=== PATIENT | male | born 1950 | race Caucasian/White ===

== ENCOUNTER 2018-04-01 08:44 | Observation (INO) | payer BC ==
--- NOTE | 2018-04-01 08:52 | EDM.PDOC ---
ED HPI GENERAL MEDICAL PROBLEM - General Stated Complaint: DIZZY Time Seen by Provider: 04/01/18 08:45 - History of Present Illness INITIAL COMMENTS - FREE TEXT/NARRATIVE: HISTORY AND PHYSICAL: History of present illness: The patient is a 67-year-old male who follows with Dr. Velasco in the clinic and has a history of COPD coronary artery disease with CABG twice the last one was 4 yrs ago, hypercholesterolemia hypertension and was recently diagnosed with a pulmonary embolism on the left and was placed on Xarelto, it was even believe that there might be some component of lung infarct on the left, and who was seen in the clinic yesterday for reevaluation regarding the PE. The patient was evaluated by the provider and he did mention that he was feeling somewhat dizzy. On exam during that clinic visit the patient had good breath sounds and felt that the pain on the left side of his chest had been improving. He did have blood work yesterday which revealed a hemoglobin of 12.6, which is down from his usual range of 15 per his provider, and he also had a basic metabolic profile all of which has been reviewed by me. At the conclusion of that clinic visit he was scheduled to have a repeat CT of the chest on April 28 he had his COPD meds renewed and he was scheduled to have repeat labs in the next week or so. He was also noted on the clinic visit yesterday that he was slightly orthostatic and he was advised to drink electrolyte solutions and fluids. Patient's son called Dr. Velasco this morning and said that he continued to be dizzy. Dr. Velasco referred the patient to the ED and he is currently in the ED for evaluation. The patient in the ED currently tells me that he feels more lightheaded/dizzy than he did yesterday. He says it is worse with position changes and he feels off-balance when he is walking. He feels like he gets foggy in his thoughts but is not confused and has no speech or swallowing changes. He doesn't have any focal weakness that he can identify but he says that he intermittently will feel like his upper extremities feel drained. He has no headache neck pain or back pain no chest pain no shortness of breath more than usual and no abdominal complaints. He had a bowel movement yesterday that was not black or bloody and he has no vomiting. He says he is eating and drinking normally although not much of an appetite. He uses an inhaler at home for his COPD but has been smoking again. He's had normal urine output and no blood in his urine. He has no extremity complaints of pain. Patient says he is not dizzy per se as a spinning-like sensation but more as a feeling like he might pass out. Please note that the patient has seen Dr. Verma in the past for his coronary artery disease. Review of systems: As per history of present illness and below otherwise all systems reviewed and negative. Past medical history: As per history of present illness and as reviewed below otherwise noncontributory. Surgical history: As per history of present illness and as reviewed below otherwise noncontributory. Social history: No reported history of drug or alcohol abuse. Family history: As per history of present illness and as reviewed below otherwise noncontributory. Physical exam: General: Well-developed well-nourished man who is thin nontoxic and speaks clearly and easily in the ED. Patient's initial room air O2 sat was 88%. He is cooperative and interactive HEENT: Atraumatic, normocephalic, pupils reactive, negative for conjunctival pallor or scleral icterus, mucous membranes moist, throat clear, neck supple, nontender, trachea midline. TMs are dulled bilaterally difficult to see the left lung due to some cerumen in the canal. There is no mastoid tenderness no cervical adenopathy or nuchal rigidity. Lungs: patient has coarse breath sounds bilaterally which are diminished at the bases bilaterally and there is expiratory wheezing more at the left base and scattered throughout the right side , breath sounds equal bilaterally, chest nontender. Heart: S1S2, regular rate and rhythm no overt murmurs Abdomen: Soft, nondistended, nontender. Negative for masses or hepatosplenomegaly. Negative for costovertebral tenderness. there is no rebound guarding or tympany. Bowel sounds are normoactive Pelvis: Stable nontender. Genitourinary: Deferred. Rectal: Deferred. Extremities: Atraumatic, negative for cords or calf pain. Neurovascular unremarkable. no pedal edema or leg asymmetry Neuro: Awake, alert, oriented. Cranial nerves II through XII unremarkable. Cerebellum unremarkable. Motor and sensory unremarkable throughout. Exam nonfocal. dorsi and plantar flexion is intact 5/5 inclusive of the great toe and tone is normal throughout. 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 Skin: There is no diaphoresis and no overt rashes or lesions. There is a nick color to his face and nose appears chronic Diagnostics: EKG orthostatic vitals CBC CMP INR troponin TSH UA CT scan of the head chest x- ray Therapeutics: IV O2 monitor duo neb Solu-Medrol Patient's orthostatic vitals were not positive. The patient stated to nursing that once he was placed on oxygen therapy on arrival he felt less dizzy. After I receive the positive troponin level of 0.184 I contacted the patient's electronic instrument trades worker, Dr. Valentin, at [facility] at 10:20 AM. As the patient is not having chest pain and has no EKG changes he does not feel that the patient merits transfer and that we can monitor him here and if the troponin continues to rise or the patient develops symptoms he would be willing to care for him. 1030: I discussed this case with Dr. Jansen who accepts the patient for admission. I discussed all testing results with Dr. Velasco as well as the patient and family at bedside. He is agreeable for admission. He understands that the troponin is elevated and that he may need to be transferred if this progresses. He is also aware of all testing results. Impression: Dizziness, COPD exacerbation with hypoxia, elevated troponin, recent PE Definitive disposition and diagnosis as appropriate pending reevaluation and review of above. - Related Data Allergies Allergy/AdvReac Type Severity Reaction Status Date / Time No Known Allergies Allergy Verified 04/01/18 09:11 Home Meds: Home Meds Albuterol Sulfate [Proair Hfa] 1 - 2 puff INH Q4HR PRN 04/01/18 [History] Aspirin [Lo-Dose Aspirin EC] 81 mg PO DAILY 04/01/18 [History] Carvedilol 6.25 mg PO BID 04/01/18 [History] Diclofenac Sodium [Voltaren] 04/01/18 [History] Isosorbide Mononitrate [Imdur] 30 mg PO DAILY 04/01/18 [History] Losartan Potassium 50 mg PO DAILY 04/01/18 [History] Rivaroxaban [Xarelto] 15 mg PO ASDIRECTED 04/01/18 [History] Umeclidinium Brm/Vilanterol Tr [Anoro Ellipta 62.5-25 MCG] 1 puff INH DAILY [History] atorvaSTATin Calcium [Atorvastatin Calcium] 40 mg PO DAILY 04/01/18 [History] ED ROS GENERAL - Review of Systems Review Of Systems: ROS reveals no pertinent complaints other than HPI. ED EXAM, GENERAL - Physical Exam Exam: See Below (see dictation) Course - Vital Signs Last Recorded V/S: Last Vital Signs Temp 36.4 C 04/01/18 08:48 Pulse 70 04/01/18 09:45 Resp 18 04/01/18 09:45 BP 80/59 L 04/01/18 09:45 Pulse Ox 96 04/01/18 09:45 Orthostatic Blood Pressure [ 91/66 Standing] Orthostatic Blood Pressure [ 107/65 Sitting] Orthostatic Blood Pressure [ 107/69 Supine] - Orders/Labs/Meds Orders: Active Orders 24 hr Category Date Time Status Patient Status [ADT] Stat ADT 04/01/18 10:40 Ordered Cardiac Monitoring [RC] . DIRECTED Care 04/01/18 08:53 Active EKG Documentation Completion [RC] STAT Care 04/01/18 08:53 Active Orthostatic Vital Signs [RC] ASDIRECTED Care 04/01/18 08:53 Active Oxygen Therapy, ED [RC] ASDIRECTED Care 04/01/18 08:53 Active Pulse Oximetry [RC] ASDIRECTED Care 04/01/18 08:53 Active RT Aerosol Therapy [RC] ASDIRECTED Care 04/01/18 08:58 Active RT Aerosol Therapy [RC] ASDIRECTED Care 04/01/18 09:03 Active UA W/MICROSCOPIC [URIN] Stat Lab 04/01/18 09:02 Ordered Sodium Chloride 0.9% [Normal Saline] 1,000 ml Med 04/01/18 09:15 Active IV ASDIRECTED Sodium Chloride 0.9% [Saline Flush] Med 04/01/18 08:53 Active 10 ml FLUSH ASDIRECTED PRN Sodium Chloride 0.9% [Saline Flush] Med 04/01/18 08:53 Active 2.5 ml FLUSH ASDIRECTED PRN Saline Lock Insert [OM.PC] Stat Oth 04/01/18 08:53 Ordered Medication Orders Sodium Chloride (Normal Saline) 1,000 mls @ 83 mls/hr IV ASDIRECTED NEHEMIAH Last Admin: 04/01/18 09:54 Dose: 83 mls/hr Sodium Chloride (Saline Flush) 10 ml FLUSH ASDIRECTED PRN PRN Reason: Keep Vein Open Sodium Chloride (Saline Flush) 2.5 ml FLUSH ASDIRECTED PRN PRN Reason: Keep Vein Open Labs: Laboratory Tests 04/01/18 04/01/18 04/01/18 Range/Units 08:50 08:50 08:50 WBC 8.70 (4.0-11.0) K/uL RBC 3.96 L (4.50-5.90) M/uL Hgb 12.8 L (13.0-17.0) g/dL Hct 37.7 L (38.0-50.0) % MCV 95.2 (80.0-98.0) fL MCH 32.3 H (27.0-32.0) pg MCHC 34.0 (31.0-37.0) g/dL RDW Std Deviation 47.8 (28.0-62.0) fl RDW Coeff of Saman 14 (11.0-15.0) % Plt Count 175 (150-400) K/uL MPV 11.30 (7.40-12.00) fL Neut % (Auto) 72.4 (48.0-80.0) % Lymph % (Auto) 16.6 (16.0-40.0) % Frederick % (Auto) 9.5 (0.0-15.0) % Eos % (Auto) 1.3 (0.0-7.0) % Baso % (Auto) 0.2 (0.0-1.5) % Neut # (Auto) 6.3 H (1.4-5.7) K/uL Lymph # (Auto) 1.4 (0.6-2.4) K/uL Frederick # (Auto) 0.8 (0.0-0.8) K/uL Eos # (Auto) 0.1 (0.0-0.7) K/uL Baso # (Auto) 0.0 (0.0-0.1) K/uL Nucleated RBC % 0.0 /100WBC Nucleated RBCs # 0 K/uL INR 1.25 Sodium 137 (136-148) mmol/L Potassium 4.2 (3.5-5.1) mmol/L Chloride 100 (98-107) mmol/L Carbon Dioxide 28.6 (21.0-32.0) mmol/L BUN 17 (7.0-18.0) mg/dL Creatinine 1.3 (0.8-1.3) mg/dL Est Cr Clr Drug Dosing 56.65 mL/min Estimated GFR (MDRD) 55.4 ml/min Glucose 122 H (74-106) mg/dL Calcium 9.1 (8.5-10.1) mg/dL Total Bilirubin 1.0 (0.2-1.0) mg/dL AST 32 (15-37) IU/L ALT 37 (14-63) IU/L Alkaline Phosphatase 121 H (46-116) U/L Troponin I 0.184 H* (0.000-0.056) ng/mL Total Protein 7.7 (6.4-8.2) g/dL Albumin 3.6 (3.4-5.0) g/dL Globulin 4.1 H (2.0-3.5) g/dL Albumin/Globulin Ratio 0.9 L (1.3-2.8) TSH 3rd Generation 0.64 (0.36-3.74) uIU/mL Meds: Medications Generic Name Dose Route Start Last Admin Trade Name Freq PRN Reason Stop Dose Admin Sodium Chloride 1,000 mls @ 83 mls/hr 04/01/18 09:15 04/01/18 09:54 Normal Saline IV 83 mls/hr ASDIRECTED NEHEMIAH Administration Sodium Chloride 10 ml 04/01/18 08:53 Saline Flush FLUSH ASDIRECTED PRN Keep Vein Open Sodium Chloride 2.5 ml 04/01/18 08:53 Saline Flush FLUSH ASDIRECTED PRN Keep Vein Open Discontinued Medications Generic Name Dose Route Start Last Admin Trade Name Freq PRN Reason Stop Dose Admin Albuterol/Ipratropium 3 ml 04/01/18 08:58 04/01/18 09:04 Duoneb 3.0-0.5 Mg/3 Ml NEB 04/01/18 08:59 3 ml ONETIME ONE Administration Albuterol/Ipratropium 3 ml 04/01/18 09:02 04/01/18 10:37 Duoneb 3.0-0.5 Mg/3 Ml NEB 04/01/18 09:03 Not Given ONETIME ONE Methylprednisolone Sodium Succinate 125 mg 04/01/18 09:10 04/01/18 09:29 Solu-Medrol IVPUSH 04/01/18 09:11 125 mg ONETIME ONE Administration Departure - Departure Time of Disposition: 10:43 Disposition: Refer to Observation Condition: Good Clinical Impression: COPD exacerbation, Hypoxia, Elevated troponin - Discharge Information Referrals: PCP,None [Primary Care Provider] - - My Orders Last 24 Hours: My Active Orders 04/01/18 08:53 Cardiac Monitoring [RC] . DIRECTED EKG Documentation Completion [RC] STAT Orthostatic Vital Signs [RC] ASDIRECTED Oxygen Therapy, ED [RC] ASDIRECTED Pulse Oximetry [RC] ASDIRECTED Sodium Chloride 0.9% [Saline Flush] 10 ml FLUSH ASDIRECTED PRN Sodium Chloride 0.9% [Saline Flush] 2.5 ml FLUSH ASDIRECTED PRN Saline Lock Insert [OM.PC] Stat 04/01/18 08:58 RT Aerosol Therapy [RC] ASDIRECTED 04/01/18 09:02 UA W/MICROSCOPIC [URIN] Stat 04/01/18 09:03 RT Aerosol Therapy [RC] ASDIRECTED 04/01/18 09:15 Sodium Chloride 0.9% [Normal Saline] 1,000 ml IV ASDIRECTED 04/01/18 10:40 Patient Status [ADT] Stat - Assessment/Plan Last 24 Hours: My Active Orders 04/01/18 08:53 Cardiac Monitoring [RC] . DIRECTED EKG Documentation Completion [RC] STAT Orthostatic Vital Signs [RC] ASDIRECTED Oxygen Therapy, ED [RC] ASDIRECTED Pulse Oximetry [RC] ASDIRECTED Sodium Chloride 0.9% [Saline Flush] 10 ml FLUSH ASDIRECTED PRN Sodium Chloride 0.9% [Saline Flush] 2.5 ml FLUSH ASDIRECTED PRN Saline Lock Insert [OM.PC] Stat 04/01/18 08:58 RT Aerosol Therapy [RC] ASDIRECTED 04/01/18 09:02 UA W/MICROSCOPIC [URIN] Stat 04/01/18 09:03 RT Aerosol Therapy [RC] ASDIRECTED 04/01/18 09:15 Sodium Chloride 0.9% [Normal Saline] 1,000 ml IV ASDIRECTED 04/01/18 10:40 Patient Status [ADT] Stat
[2018-04-01] MEDS ORDERED: Sodium Chloride 0.9% 2.5 ML Syringe FLUSH PRN (08:53)
[2018-04-01] MEDS ORDERED: Sodium Chloride 0.9% 10 ML Syringe FLUSH PRN (08:53)
[2018-04-01] MEDS ORDERED: Albuterol/Ipratropium 3.0-0.5 MG/3 ML Neb Soln NEB ONE ×2 (08:58→09:02)
[2018-04-01] MEDS ORDERED: methylPREDNISolone Sodium Succinate 125 MG/2 ML SDV IVPUSH ONE (09:10)
[2018-04-01] MEDS ORDERED: Sodium Chloride 0.9% 1,000 ML IV SCH (09:15)
--- NOTE | 2018-04-01 09:50 | CR ---
Portable chest Clinical history: Pain and shortness of breath Comparison: CT chest March 08, 2018 her graph findings: There is platelike atelectasis at the right lung base and there is airspace consolidation in the central perihilar left lung. This was visible on the CT scan before. There is suggestion of a small right pleural effusion at this time. . Pulmonary vess els are not engorged in the upper lobes. Impression: Platelike atelectasis at the right lung base with suggestion of pleural effusion. Likely worsening of consolidation in the central perihilar portion of the left lung suggesting pneumonia
--- NOTE | 2018-04-01 10:00 | CT ---
CT brain scan Clinical history: Dizziness x2 days Findings: The ventricles and sulci are normal for age. There is no acute mass edema or hemorrhage. Va macey low attenuation is present in the deep white matter of both hemispheres particularly in the front al zones consistent with small vessel microvascular ischemic changes of aging. In addition there are bilateral occipital areas of low density suggesting microvascular ischemic change. Impression: Senescent changes in the brain consistent with small vessel microvascular ischemic change s of aging. No acute mass edema or hemorrhage.
[2018-04-01] MEDS ORDERED: Aspirin 81 MG Tab.Chew PO ONE (10:44)
[2018-04-01] MEDS ORDERED: Pantoprazole 40 MG Vial IVPUSH ONE (11:57)
[2018-04-01] MEDS ORDERED: Albuterol 0.083% 2.5 MG/3 ML Neb Soln NEB PRN (11:58)
[2018-04-01] MEDS ORDERED: Acetaminophen 325 MG Tab PO PRN (12:01)
[2018-04-01] MEDS ORDERED: Ondansetron 4 MG Tab.DIS PO PRN (12:01)
[2018-04-01] MEDS ORDERED: Docusate Sodium 100 MG Cap PO PRN (12:01)
--- NOTE | 2018-04-01 12:06 | PCM.HP ---
H&P History of Present Illness - General Date of Service: 04/01/18 Admit Problem/Dx: Admission Diagnosis/Problem Admission Diagnosis/Problem COPD, Mild chronic obstructive pulmonary disease Source of Information: Patient, Old Records (clinic records) History Limitations: Reports: No Limitations - History of Present Illness Initial Comments - Free Text/Narative: This 67 year old male with pmh of COPD, CAD, CABG x 2 with last being 4 yrs ago , HTN, tobacco abuse and recent dx of PE and DVT presented to the ED today with complaints of dizziness, lightheadedness, shortness of breath and wheezing. He reports he saw his PCP yesterday, felt some of these but they improved quickly. He was noted to be slightly orthostatic in the clinic and with elevated Cr but reports having some diarrhea secondary to laxative use due to constipation. Today he reports things worsened when he was getting ready to come to town, he got very lightheaded and dizzy with this along with a tight congested cough, but non productive. He also noticed a lot of wheezing as well. He denies fevers , chills or chest pain. No URI symptoms. No palpitations. Denies abdominal pain , diarrhea has improved. No black or bloody BMs. No urinary symptoms and no blood noted in urine. He reports he continues to smoking, rare alcohol use and no recreational drug use. He reports he overall has not felt well for 3 months or so and was recently diagnosed with PE/DVT to L leg and started on Anticoagulation therapy of Xarelto beginning of March. In the ED no leukocytosis noted, Hgb 12.8, BMP WNL, Cr 1.3 down from 1.4 yesterday per clinic records. Troponin was elevated 0.184. UA negative. Orthostatic BP obtained which showed slight changed, but no orthostasis, Lying 107/69, sitting 107/69 and standing 91/66. He was also noted to be hypoxic on RA 88%. CXR platelike atelectasis at the right lung base with suggestion of pleural effusion. Worsening consolidation in the central perihilar portion of the left lung suggesting pneumonia. Head CT negative. He was treated with ASA, Solumderol, Duonebs and NS, 250 ml bolus. \ Patient's system controller was called and notified of elevated troponin, Dr Valentin recommended continued monitoring of troponin. If patient develops chest pain or troponin continues to elevate that is when he would recommend transfer, but currently without cardiac symptoms he would not recommend transfer. Dr falcon notified of patient ED trip and admission [place] admitted for COPD exacerbation, hypoxia and elevated troponin. PCP, Dr Falcon - Related Data Allergies/Adverse Reactions: Allergies Allergy/AdvReac Type Severity Reaction Status Date / Time No Known Allergies Allergy Verified 04/01/18 12:06 Home Medications: Home Meds Albuterol Sulfate [Proair Hfa] 1 - 2 puff INH Q4HR PRN 04/01/18 [History] Aspirin [Lo-Dose Aspirin EC] 81 mg PO DAILY 04/01/18 [History] Carvedilol 6.25 mg PO BID 04/01/18 [History] Isosorbide Mononitrate [Imdur] 30 mg PO DAILY 04/01/18 [History] Losartan Potassium 50 mg PO DAILY 04/01/18 [History] Rivaroxaban [Xarelto] 15 mg PO DAILY 04/01/18 [History] atorvaSTATin Calcium [Atorvastatin Calcium] 40 mg PO DAILY 04/01/18 [History] Past Medical History Cardiovascular History: Reports: Blood Clots/VTE/DVT, Bypass, CAD, High Cholesterol, Hypertension, SOB on Exertion Respiratory History: Reports: COPD, PE Gastrointestinal History: Reports: None. Denies: GERD, GI Bleed Genitourinary History: Reports: None Musculoskeletal History: Reports: None Neurological History: Reports: None. Denies: CVA, Migraines Psychiatric History: Reports: None Endocrine/Metabolic History: Reports: None. Denies: Diabetes, Type II, Hypothyroidism - Infectious Disease History Infectious Disease History: Reports: Other (See Below) Other Infectious Disease History: unable to remember - Past Surgical History Cardiovascular Surgical History: Reports: Coronary Artery Bypass (x2) Social & Family History - Family History Family Medical History: Noncontributory - Tobacco Use Smoking Status *Q: Current Every Day Smoker Years of Tobacco use: 40 Packs/Tins Daily: 1 - Alcohol Use Alcohol Use History: No - Recreational Drug Use Recreational Drug Use: No - Living Situation & Occupation Living situation: Reports: Single Occupation: Employed (but hasn't worked in over 1 month.) H&P Review of Systems - Review of Systems: Review Of Systems: See Below General: Reports: Malaise. Denies: Fever, Chills, Weakness, Fatigue HEENT: Reports: No Symptoms. Denies: Headaches, Sinus Congestion, Sore Throat, Visual Changes Pulmonary: Reports: Shortness of Breath, Wheezing, Cough. Denies: Sputum, Hemoptysis Cardiovascular: Reports: Dyspnea on Exertion, Lightheadedness. Denies: Chest Pain, Palpitations, Orthopnea, Edema Gastrointestinal: Reports: No Symptoms. Denies: Abdominal Pain, Black Stool, Bloody Stool, Decreased Appetite, Nausea, Vomiting Genitourinary: Reports: No Symptoms. Denies: Dysuria, Frequency, Burning, Pain Musculoskeletal: Reports: No Symptoms Skin: Reports: No Symptoms Psychiatric: Reports: No Symptoms Neurological: Reports: No Symptoms Hematologic/Lymphatic: Reports: No Symptoms Immunologic: Reports: No Symptoms Exam - Exam Exam: See Below - Vital Signs Vital Signs: Last Vital Signs Temp 97.6 F 04/01/18 08:48 Pulse 79 04/01/18 11:09 Resp 18 04/01/18 11:09 BP 123/79 04/01/18 11:09 Pulse Ox 94 L 04/01/18 11:09 Orthostatic Blood Pressure [ 91/66 Standing] Orthostatic Blood Pressure [ 107/65 Sitting] Orthostatic Blood Pressure [ 107/69 Supine] Weight: 81.647 kg - Exam Quality Assessment: Supplemental Oxygen, DVT Prophylaxis General: Alert, Oriented, Cooperative HEENT: Conjunctiva Clear, Mucosa Moist & [place], Posterior Pharynx Clear Neck: Supple, Trachea Midline, 2 Lungs: Clear to Auscultation, Normal Respiratory Effort, Wheezing (scant wheezing heard to R lung jane, but did recently get solumedrol and nebs. reports it is much improved from when he arrived.) Cardiovascular: Regular Rate, Regular Rhythm. No: Tachycardia, Systolic Murmur GI/Abdominal Exam: Normal Bowel Sounds, Soft, Non-Tender, No Organomegaly, No Distention, No Abnormal Bruit, No Mass, Pelvis Stable Back Exam: Normal Inspection Extremities: Normal Inspection, Normal Range of Motion, Non-Tender, No Pedal Edema, Normal Capillary Refill, Other (reports DVT to L leg. ) Skin: Warm, Dry, Intact Neuro Extensive - Mental Status: Alert, Oriented x3 Neuro Extensive - Motor, Sensory, Reflexes: CN II-XII Intact - Patient Data Lab Results Last 24 hrs: Laboratory Results - last 24 hr 04/01/18 04/01/18 04/01/18 Range/Units 08:50 08:50 08:50 WBC 8.70 (4.0-11.0) K/uL RBC 3.96 L (4.50-5.90) M/uL Hgb 12.8 L (13.0-17.0) g/dL Hct 37.7 L (38.0-50.0) % MCV 95.2 (80.0-98.0) fL MCH 32.3 H (27.0-32.0) pg MCHC 34.0 (31.0-37.0) g/dL RDW Std Deviation 47.8 (28.0-62.0) fl RDW Coeff of Saman 14 (11.0-15.0) % Plt Count 175 (150-400) K/uL MPV 11.30 (7.40-12.00) fL Neut % (Auto) 72.4 (48.0-80.0) % Lymph % (Auto) 16.6 (16.0-40.0) % Collin % (Auto) 9.5 (0.0-15.0) % Eos % (Auto) 1.3 (0.0-7.0) % Baso % (Auto) 0.2 (0.0-1.5) % Neut # (Auto) 6.3 H (1.4-5.7) K/uL Lymph # (Auto) 1.4 (0.6-2.4) K/uL Collin # (Auto) 0.8 (0.0-0.8) K/uL Eos # (Auto) 0.1 (0.0-0.7) K/uL Baso # (Auto) 0.0 (0.0-0.1) K/uL Nucleated RBC % 0.0 /100WBC Nucleated RBCs # 0 K/uL INR 1.25 Sodium 137 (136-148) mmol/L Potassium 4.2 (3.5-5.1) mmol/L Chloride 100 (98-107) mmol/L Carbon Dioxide 28.6 (21.0-32.0) mmol/L BUN 17 (7.0-18.0) mg/dL Creatinine 1.3 (0.8-1.3) mg/dL Est Cr Clr Drug Dosing 56.65 mL/min Estimated GFR (MDRD) 55.4 ml/min Glucose 122 H (74-106) mg/dL Calcium 9.1 (8.5-10.1) mg/dL Total Bilirubin 1.0 (0.2-1.0) mg/dL AST 32 (15-37) IU/L ALT 37 (14-63) IU/L Alkaline Phosphatase 121 H (46-116) U/L Troponin I 0.184 H* (0.000-0.056) ng/mL Total Protein 7.7 (6.4-8.2) g/dL Albumin 3.6 (3.4-5.0) g/dL Globulin 4.1 H (2.0-3.5) g/dL Albumin/Globulin Ratio 0.9 L (1.3-2.8) TSH 3rd Generation 0.64 (0.36-3.74) uIU/mL Urine Color Urine Appearance Urine pH (5.0-8.0) Ur Specific [place] (1.001-1.035) Urine Protein (NEGATIVE) mg/dL Urine Glucose (UA) (NEGATIVE) mg/dL Urine Ketones (NEGATIVE) mg/dL Urine Occult Blood (NEGATIVE) Urine Nitrite (NEGATIVE) Urine Bilirubin (NEGATIVE) Urine Urobilinogen (<2.0) EU/dL Ur Leukocyte Esterase (NEGATIVE) Urine RBC (0-2/HPF) Urine WBC (0-5/HPF) Ur Epithelial Cells (NONE-FEW) Urine Bacteria (NEGATIVE) 04/01/18 Range/Units 10:55 WBC (4.0-11.0) K/uL RBC (4.50-5.90) M/uL Hgb (13.0-17.0) g/dL Hct (38.0-50.0) % MCV (80.0-98.0) fL MCH (27.0-32.0) pg MCHC (31.0-37.0) g/dL RDW Std Deviation (28.0-62.0) fl RDW Coeff of Saman (11.0-15.0) % Plt Count (150-400) K/uL MPV (7.40-12.00) fL Neut % (Auto) (48.0-80.0) % Lymph % (Auto) (16.0-40.0) % [place]lin % (Auto) (0.0-15.0) % Eos % (Auto) (0.0-7.0) % Baso % (Auto) (0.0-1.5) % Neut # (Auto) (1.4-5.7) K/uL Lymph # (Auto) (0.6-2.4) K/uL [place] # (Auto) (0.0-0.8) K/uL Eos # (Auto) (0.0-0.7) K/uL Baso # (Auto) (0.0-0.1) K/uL Nucleated RBC % /100WBC Nucleated RBCs # K/uL INR Sodium (136-148) mmol/L Potassium (3.5-5.1) mmol/L Chloride (98-107) mmol/L Carbon Dioxide (21.0-32.0) mmol/L BUN (7.0-18.0) mg/dL Creatinine (0.8-1.3) mg/dL Est Cr Clr Drug Dosing mL/min Estimated GFR (MDRD) ml/min Glucose (74-106) mg/dL Calcium (8.5-10.1) mg/dL Total Bilirubin (0.2-1.0) mg/dL AST (15-37) IU/L ALT (14-63) IU/L Alkaline Phosphatase (46-116) U/L Troponin I (0.000-0.056) ng/mL Total Protein (6.4-8.2) g/dL Albumin (3.4-5.0) g/dL Globulin (2.0-3.5) g/dL Albumin/Globulin Ratio (1.3-2.8) TSH 3rd Generation (0.36-3.74) uIU/mL Urine Color YELLOW Urine Appearance CLEAR Urine pH 6.0 (5.0-8.0) Ur Specific [place] <= 1.005 (1.001-1.035) Urine Protein NEGATIVE (NEGATIVE) mg/dL Urine Glucose (UA) NEGATIVE (NEGATIVE) mg/dL Urine Ketones NEGATIVE (NEGATIVE) mg/dL Urine Occult Blood SMALL H (NEGATIVE) Urine Nitrite NEGATIVE (NEGATIVE) Urine Bilirubin NEGATIVE (NEGATIVE) Urine Urobilinogen 0.2 (<2.0) EU/dL Ur Leukocyte Esterase NEGATIVE (NEGATIVE) Urine RBC 0-1 (0-2/HPF) Urine WBC 0-2 (0-5/HPF) Ur Epithelial Cells RARE (NONE-FEW) Urine Bacteria RARE (NEGATIVE) Result Diagrams: 04/01/18 08:50 04/01/18 08:50 EKG INTERPRETATION EKG Date: 04/01/18 Rhythm: NSR [place]: LAD-Left [place] Deviation P-Wave: Present QRS: Normal ST-T: Normal QT: Normal - Problem List (1) Acute and chronic respiratory failure SNOMED Code(s): 98371134 ICD Code: J96.20 - ACUTE AND CHR RESP FAILURE, UNSP W HYPOXIA OR HYPERCAPNIA Status: Acute Current Visit: Yes Qualifiers: Respiratory failure complication: hypoxia Qualified Code(s): J96.21 - Acute and chronic respiratory failure with hypoxia (2) COPD exacerbation SNOMED Code(s): 858766377 ICD Code: J44.1 - CHRONIC OBSTRUCTIVE PULMONARY DISEASE W (ACUTE) EXACERBATION Status: Acute Current Visit: Yes (3) Hypoxia SNOMED Code(s): 614281221 ICD Code: R09.02 - HYPOXEMIA Status: Acute Current Visit: Yes (4) Elevated troponin SNOMED Code(s): 826997131, 266619925, 110606249 ICD Code: R74.8 - ABNORMAL LEVELS OF OTHER SERUM ENZYMES Status: Acute Current Visit: Yes (5) CAD (coronary artery disease) SNOMED Code(s): 18134043 ICD Code: I25.10 - ATHSCL HEART DISEASE OF [place] CORONARY ARTERY W/O ANG PCTRS Status: Chronic Current Visit: Yes (6) S/P CABG x 2 SNOMED Code(s): 479512382, 202761233, 905941366 ICD Code: Z95.1 - PRESENCE OF AORTOCORONARY BYPASS GRAFT Status: Chronic Current Visit: Yes (7) HTN (hypertension) SNOMED Code(s): 08446116 ICD Code: I10 - ESSENTIAL (PRIMARY) HYPERTENSION Status: Chronic Current Visit: Yes Qualifiers: Hypertension type: essential hypertension Qualified Code(s): I10 - Essential (primary) hypertension (8) DVT (deep venous thrombosis) SNOMED Code(s): 158149294 ICD Code: I82.409 - ACUTE EMBOLISM AND THOMBOS UNSP DEEP VN UNSP LOWER EXTREMITY Status: Chronic Current Visit: Yes Qualifiers: DVT location: lower extremity Chronicity: chronic Laterality: left (9) Pulmonary embolism SNOMED Code(s): 23410649 ICD Code: I26.99 - OTHER PULMONARY EMBOLISM WITHOUT ACUTE COR PULMONALE Status: Chronic Current Visit: Yes Qualifiers: Pulmonary embolism type: other Chronicity: chronic Acute cor pulmonale presence: without acute cor pulmonale Qualified Code(s): I27.82 - Chronic pulmonary embolism Problem List Initiated/Reviewed/Updated: Yes Orders Last 24hrs: Active Orders 24 hr Category Date Time Status Patient Status [ADT] Stat ADT 04/01/18 10:40 Active Cardiac Monitoring [RC] Q8H Care 04/01/18 08:53 Active EKG Documentation Completion [RC] STAT Care 04/01/18 08:53 Active Height and Weight [RC] DAILY Care 04/01/18 12:01 Ordered Intake and Output [RC] QSHIFT Care 04/01/18 12:02 Ordered Orthostatic Vital Signs [RC] ASDIRECTED Care 04/01/18 08:53 Active Oxygen Therapy [RC] PRN Care 04/01/18 12:02 Ordered Oxygen Therapy, ED [RC] ASDIRECTED Care 04/01/18 08:53 Active Pulse Oximetry [RC] ASDIRECTED Care 04/01/18 08:53 Active RT Aerosol Therapy [RC] ASDIRECTED Care 04/01/18 08:58 Active RT Aerosol Therapy [RC] ASDIRECTED Care 04/01/18 09:03 Active RT Aerosol Therapy [RC] ASDIRECTED Care 04/01/18 11:59 Ordered Telemetry Monitoring [Cardiac Monitoring] [RC] . Care 04/01/18 12:00 Ordered DIRECTED Up ad Grace [RC] ASDIRECTED Care 04/01/18 12:01 Ordered VTE/DVT Education [RC] PER UNIT ROUTINE Care 04/01/18 12:02 Ordered Vital Signs [RC] Q4H Care 04/01/18 12:02 Ordered Heart Healthy Diet [DIET] Diet 04/01/18 Lunch Ordered BMP [BASIC METABOLIC PANEL,BMP] [CHEM] AM Lab 04/02/18 05:11 Ordered BMP [BASIC METABOLIC PANEL,BMP] [CHEM] AM Lab 04/03/18 05:11 Ordered CBC WITH AUTO DIFF [HEME] AM Lab 04/02/18 05:11 Ordered CBC WITH AUTO DIFF [HEME] AM Lab 04/03/18 05:11 Ordered TROPONIN I [CHEM] Q6H Lab 04/01/18 15:00 Ordered TROPONIN I [CHEM] Q6H Lab 04/01/18 21:00 Ordered UA W/MICROSCOPIC [URIN] Stat Lab 04/01/18 10:55 Received Acetaminophen [Tylenol] Med 04/01/18 12:01 Ordered 650 mg PO Q4H PRN Albuterol [Proventil Neb Soln] Med 04/01/18 11:58 Ordered 2.5 mg NEB Q2H PRN Albuterol/Ipratropium [DuoNeb 3.0-0.5 MG/3 ML] Med 04/01/18 14:00 Ordered 3 ml NEB Q4HRRT Aspirin [Halfprin] Med 04/02/18 09:00 Ordered 81 mg PO DAILY Azithromycin [Zithromax] Med 04/01/18 12:15 Ordered 500 mg PO Q24H Carvedilol [Coreg] Med 04/01/18 12:15 Ordered 6.25 mg PO BID Docusate Sodium [Colace] Med 04/01/18 12:01 Ordered 100 mg PO BID PRN Isosorbide Mononitrate [Imdur] Med 04/01/18 12:15 Ordered 30 mg PO DAILY Ondansetron [Zofran ODT] Med 04/01/18 12:01 Ordered 4 mg PO Q4H PRN Pantoprazole [ProTONIX] Med 04/02/18 07:30 Ordered 40 mg PO ACBREAKFAST Rivaroxaban [Xarelto] Med 04/02/18 09:00 Ordered 20 mg PO DAILY Sodium Chloride 0.9% [Saline Flush] Med 04/01/18 08:53 Active 10 ml FLUSH ASDIRECTED PRN Sodium Chloride 0.9% [Saline Flush] Med 04/01/18 08:53 Active 2.5 ml FLUSH ASDIRECTED PRN atorvaSTATin [Lipitor] Med 04/02/18 09:00 Ordered 40 mg PO DAILY methylPREDNISolone Sod Succ [Solu-MEDROL] Med 04/01/18 17:00 Ordered 125 mg IVPUSH Q8H Saline Lock Insert [OM.PC] Stat Oth 04/01/18 08:53 Ordered Resuscitation Status Routine Resus Stat 04/01/18 12:01 Ordered Medication Orders Albuterol (Proventil Neb Soln) 2.5 mg NEB Q2H PRN PRN Reason: Shortness Of Breath/wheezing Albuterol/Ipratropium (Duoneb 3.0-0.5 Mg/3 Ml) 3 ml NEB Q4HRRT NEHEMIAH Methylprednisolone Sodium Succinate (Solu-Medrol) 125 mg IVPUSH Q8H [place]HEMIAH Pantoprazole Sodium (Protonix) 40 mg PO ACBREAKFAST [place] Sodium Chloride (Saline Flush) 10 ml FLUSH ASDIRECTED PRN PRN Reason: Keep Vein Open Sodium Chloride (Saline Flush) 2.5 ml FLUSH ASDIRECTED PRN PRN Reason: Keep Vein Open Assessment/Plan Comment:: This 67 year old male admitted with acute on chronic respiratory failure, COPD exacerbation and elevate troponin 1. Acute on chronic respiratory failure with hypoxia: COPD exacerbation expected secondary to wheezing and hypoxia. Will continue Solumedrol 125 mg IV Q8hr, Duonebs and encourage IS. Will also add Azithromycin 500 mg daily. Oxygen as needed to keep sats 88% and above. Wean as possible. Reports feeling a lot better since arriving to ED. 2. Elevated troponin: Monitor on telemetry. NO chest pain. Will trend and monitor for elevation. If elevates or develops chest pain, may need transfer. 3. HTN: BPs lower in ED. After IVFs BP elevated to 115-120/80s. Will monitor. Continue Coreg and Imdur, hold Losartan for now. 4. CAD: Stable. Continue ASA and statin. Continue Coreg. 5 DVT/PE: Continue Xarelto. Stable. VTE prophyalxis: Xarelto GI prophylaxis: Protonix Dispo: 1-2 days pending improvement.
[2018-04-01] MEDS ORDERED: Isosorbide Mononitrate 30 MG Tab.ER PO SCH (12:15)
[2018-04-01] MEDS: Carvedilol 6.25 MG Tab PO SCH ×2 (12:22→20:41)
[2018-04-01] MEDS: Azithromycin 250 MG Tab PO SCH (13:15)
[2018-04-01] MEDS: Albuterol/Ipratropium 3.0-0.5 MG/3 ML Neb Soln NEB SCH ×3 (14:12→21:26)
[2018-04-01] MEDS: methylPREDNISolone Sodium Succinate 125 MG/2 ML SDV IVPUSH SCH (17:08)
[2018-04-02] MEDS: methylPREDNISolone Sodium Succinate 125 MG/2 ML SDV IVPUSH SCH ×3 (01:01→20:26)
[2018-04-02] MEDS: Albuterol/Ipratropium 3.0-0.5 MG/3 ML Neb Soln NEB SCH ×6 (01:01→21:12)
[2018-04-02 05:37] LABS: CHLORIDE,CL 101 mmol/L (98-107); SODIUM,NA 135 mmol/L (136-148)
[2018-04-02] MEDS: Pantoprazole 40 MG Tab.CR PO SCH (06:30)
--- NOTE | 2018-04-02 07:34 | PCM.PN ---
- General Info Date of Service: 04/02/18 Admission Dx/Problem (Free Text): Admission Diagnosis/Problem Admission Diagnosis/Problem COPD, Mild chronic obstructive pulmonary disease Subjective Update: Feeling better today. Having intermittent blurred vision, it comes randomly he blinks a few times and then it goes away. No chest pain. Dyspnea is much improved. Feels slightly tight still with congested cough, non productive. Functional Status: Reports: Pain Controlled, Tolerating Diet, Ambulating, Urinating - Review of Systems General: Reports: No Symptoms. Denies: Fever, Weakness, Fatigue, Malaise HEENT: Reports: Visual Changes (intermittent blurred vision). Denies: Sore Throat Pulmonary: Reports: Cough, Wheezing (better and now less and intermittent). Denies: Shortness of Breath, Sputum, Hemoptysis Cardiovascular: Reports: No Symptoms. Denies: Chest Pain Gastrointestinal: Reports: No Symptoms. Denies: Abdominal Pain, Nausea, Vomiting Genitourinary: Reports: No Symptoms. Denies: Dysuria, Frequency, Burning Musculoskeletal: Reports: No Symptoms Skin: Reports: No Symptoms Neurological: Reports: No Symptoms Psychiatric: Reports: No Symptoms - Patient Data Vitals - Most Recent: Last Vital Signs Temp 98.4 F 04/02/18 05:00 Pulse 94 04/02/18 05:00 Resp 19 04/02/18 05:00 BP 96/37 L 04/02/18 05:00 Pulse Ox 96 04/02/18 05:00 Orthostatic Blood Pressure [ 111/75 Standing] Orthostatic Blood Pressure [ 113/70 Sitting] Orthostatic Blood Pressure [ 113/63 Supine] Weight - Most Recent: 81.647 kg I&O - Last 24 Hours: Intake & Output 04/01/18 04/02/18 04/02/18 22:59 06:59 14:59 Intake Total 600 240 Output Total 500 1550 Balance 100 -1310 Lab Results Last 24 Hours: Laboratory Results - last 24 hr 04/01/18 04/01/18 04/01/18 Range/Units 08:50 08:50 08:50 WBC 8.70 (4.0-11.0) K/uL RBC 3.96 L (4.50-5.90) M/uL Hgb 12.8 L (13.0-17.0) g/dL Hct 37.7 L (38.0-50.0) % MCV 95.2 (80.0-98.0) fL MCH 32.3 H (27.0-32.0) pg MCHC 34.0 (31.0-37.0) g/dL RDW Std Deviation 47.8 (28.0-62.0) fl RDW Coeff of [place] 14 (11.0-15.0) % Plt Count 175 (150-400) K/uL MPV 11.30 (7.40-12.00) fL Neut % (Auto) 72.4 (48.0-80.0) % Lymph % (Auto) 16.6 (16.0-40.0) % Rich % (Auto) 9.5 (0.0-15.0) % Eos % (Auto) 1.3 (0.0-7.0) % Baso % (Auto) 0.2 (0.0-1.5) % Neut # (Auto) 6.3 H (1.4-5.7) K/uL Lymph # (Auto) 1.4 (0.6-2.4) K/uL Rich # (Auto) 0.8 (0.0-0.8) K/uL Eos # (Auto) 0.1 (0.0-0.7) K/uL Baso # (Auto) 0.0 (0.0-0.1) K/uL Nucleated RBC % 0.0 /100WBC Nucleated RBCs # 0 K/uL INR 1.25 Sodium 137 (136-148) mmol/L Potassium 4.2 (3.5-5.1) mmol/L Chloride 100 (98-107) mmol/L Carbon Dioxide 28.6 (21.0-32.0) mmol/L BUN 17 (7.0-18.0) mg/dL Creatinine 1.3 (0.8-1.3) mg/dL Est Cr Clr Drug Dosing 56.65 mL/min Estimated GFR (MDRD) 55.4 ml/min Glucose 122 H (74-106) mg/dL Calcium 9.1 (8.5-10.1) mg/dL Total Bilirubin 1.0 (0.2-1.0) mg/dL AST 32 (15-37) IU/L ALT 37 (14-63) IU/L Alkaline Phosphatase 121 H (46-116) U/L Troponin I 0.184 H* (0.000-0.056) ng/mL Total Protein 7.7 (6.4-8.2) g/dL Albumin 3.6 (3.4-5.0) g/dL Globulin 4.1 H (2.0-3.5) g/dL Albumin/Globulin Ratio 0.9 L (1.3-2.8) TSH 3rd Generation 0.64 (0.36-3.74) uIU/mL Urine Color Urine Appearance Urine pH (5.0-8.0) Ur Specific [place] (1.001-1.035) Urine Protein (NEGATIVE) mg/dL Urine Glucose (UA) (NEGATIVE) mg/dL Urine Ketones (NEGATIVE) mg/dL Urine Occult Blood (NEGATIVE) Urine Nitrite (NEGATIVE) Urine Bilirubin (NEGATIVE) Urine Urobilinogen (<2.0) EU/dL Ur Leukocyte Esterase (NEGATIVE) Urine RBC (0-2/HPF) Urine WBC (0-5/HPF) Ur Epithelial Cells (NONE-FEW) Urine Bacteria (NEGATIVE) 04/01/18 04/01/18 04/01/18 Range/Units 10:55 15:20 21:10 WBC (4.0-11.0) K/uL RBC (4.50-5.90) M/uL Hgb (13.0-17.0) g/dL Hct (38.0-50.0) % MCV (80.0-98.0) fL MCH (27.0-32.0) pg MCHC (31.0-37.0) g/dL RDW Std Deviation (28.0-62.0) fl RDW Coeff of [place] (11.0-15.0) % Plt Count (150-400) K/uL MPV (7.40-12.00) fL Neut % (Auto) (48.0-80.0) % Lymph % (Auto) (16.0-40.0) % Rich % (Auto) (0.0-15.0) % Eos % (Auto) (0.0-7.0) % Baso % (Auto) (0.0-1.5) % Neut # (Auto) (1.4-5.7) K/uL Lymph # (Auto) (0.6-2.4) K/uL Rich # (Auto) (0.0-0.8) K/uL Eos # (Auto) (0.0-0.7) K/uL Baso # (Auto) (0.0-0.1) K/uL Nucleated RBC % /100WBC Nucleated RBCs # K/uL INR Sodium (136-148) mmol/L Potassium (3.5-5.1) mmol/L Chloride (98-107) mmol/L Carbon Dioxide (21.0-32.0) mmol/L BUN (7.0-18.0) mg/dL Creatinine (0.8-1.3) mg/dL Est Cr Clr Drug Dosing mL/min Estimated GFR (MDRD) ml/min Glucose (74-106) mg/dL Calcium (8.5-10.1) mg/dL Total Bilirubin (0.2-1.0) mg/dL AST (15-37) IU/L ALT (14-63) IU/L Alkaline Phosphatase (46-116) U/L Troponin I 0.191 H* 0.205 H* (0.000-0.056) ng/mL Total Protein (6.4-8.2) g/dL Albumin (3.4-5.0) g/dL Globulin (2.0-3.5) g/dL Albumin/Globulin Ratio (1.3-2.8) TSH 3rd Generation (0.36-3.74) uIU/mL Urine Color YELLOW Urine Appearance CLEAR Urine pH 6.0 (5.0-8.0) Ur Specific [place] <= 1.005 (1.001-1.035) Urine Protein NEGATIVE (NEGATIVE) mg/dL Urine Glucose (UA) NEGATIVE (NEGATIVE) mg/dL Urine Ketones NEGATIVE (NEGATIVE) mg/dL Urine Occult Blood SMALL H (NEGATIVE) Urine Nitrite NEGATIVE (NEGATIVE) Urine Bilirubin NEGATIVE (NEGATIVE) Urine Urobilinogen 0.2 (<2.0) EU/dL Ur Leukocyte Esterase NEGATIVE (NEGATIVE) Urine RBC 0-1 (0-2/HPF) Urine WBC 0-2 (0-5/HPF) Ur Epithelial Cells RARE (NONE-FEW) Urine Bacteria RARE (NEGATIVE) 04/02/18 04/02/18 Range/Units 04:43 04:43 WBC 6.73 (4.0-11.0) K/uL RBC 3.59 L (4.50-5.90) M/uL Hgb 11.5 L (13.0-17.0) g/dL Hct 33.7 L (38.0-50.0) % MCV 93.9 (80.0-98.0) fL MCH 32.0 (27.0-32.0) pg MCHC 34.1 (31.0-37.0) g/dL RDW Std Deviation 46.1 (28.0-62.0) fl RDW Coeff of [place] 13 (11.0-15.0) % Plt Count 166 (150-400) K/uL MPV 11.30 (7.40-12.00) fL Neut % (Auto) 87.9 H (48.0-80.0) % Lymph % (Auto) 10.3 L (16.0-40.0) % Rich % (Auto) 1.8 (0.0-15.0) % Eos % (Auto) 0.0 (0.0-7.0) % Baso % (Auto) 0.0 (0.0-1.5) % Neut # (Auto) 5.9 H (1.4-5.7) K/uL Lymph # (Auto) 0.7 (0.6-2.4) K/uL Rich # (Auto) 0.1 (0.0-0.8) K/uL Eos # (Auto) 0.0 (0.0-0.7) K/uL Baso # (Auto) 0.0 (0.0-0.1) K/uL Nucleated RBC % 0.0 /100WBC Nucleated RBCs # 0 K/uL INR Sodium 135 L (136-148) mmol/L Potassium 4.2 (3.5-5.1) mmol/L Chloride 101 (98-107) mmol/L Carbon Dioxide 25.8 (21.0-32.0) mmol/L BUN 24 H (7.0-18.0) mg/dL Creatinine 1.2 (0.8-1.3) mg/dL Est Cr Clr Drug Dosing 61.37 mL/min Estimated GFR (MDRD) > 60.0 ml/min Glucose 161 H (74-106) mg/dL Calcium 8.6 (8.5-10.1) mg/dL Total Bilirubin (0.2-1.0) mg/dL AST (15-37) IU/L ALT (14-63) IU/L Alkaline Phosphatase (46-116) U/L Troponin I (0.000-0.056) ng/mL Total Protein (6.4-8.2) g/dL Albumin (3.4-5.0) g/dL Globulin (2.0-3.5) g/dL Albumin/Globulin Ratio (1.3-2.8) TSH 3rd Generation (0.36-3.74) uIU/mL Urine Color Urine Appearance Urine pH (5.0-8.0) Ur Specific [place] (1.001-1.035) Urine Protein (NEGATIVE) mg/dL Urine Glucose (UA) (NEGATIVE) mg/dL Urine Ketones (NEGATIVE) mg/dL Urine Occult Blood (NEGATIVE) Urine Nitrite (NEGATIVE) Urine Bilirubin (NEGATIVE) Urine Urobilinogen (<2.0) EU/dL Ur Leukocyte Esterase (NEGATIVE) Urine RBC (0-2/HPF) Urine WBC (0-5/HPF) Ur Epithelial Cells (NONE-FEW) Urine Bacteria (NEGATIVE) Med Orders - Current: Current Medications Acetaminophen (Tylenol) 650 mg PO Q4H PRN PRN Reason: Pain (mild 1-3) Albuterol (Proventil Neb Soln) 2.5 mg NEB Q2H PRN PRN Reason: Shortness Of Breath/wheezing Albuterol/Ipratropium (Duoneb 3.0-0.5 Mg/3 Ml) 3 ml NEB Q4HRRT [facility] Last Admin: 04/02/18 05:57 Dose: 3 ml Aspirin (Halfprin) 81 mg PO DAILY [facility] Atorvastatin Calcium (Lipitor) 40 mg PO DAILY [facility] Azithromycin (Zithromax) 500 mg PO Q24H [facility] Last Admin: 04/01/18 13:15 Dose: 500 mg Carvedilol (Coreg) 6.25 mg PO BID [facility] Last Admin: 04/01/18 20:41 Dose: Not Given Docusate Sodium (Colace) 100 mg PO BID PRN PRN Reason: Constipation Methylprednisolone Sodium Succinate (Solu-Medrol) 125 mg IVPUSH Q8H [facility] Last Admin: 04/02/18 01:01 Dose: 125 mg Ondansetron HCl (Zofran Odt) 4 mg PO Q4H PRN PRN Reason: nausea, able to take PO Pantoprazole Sodium (Protonix) 40 mg PO ACBREAKFAST [facility] Last Admin: 04/02/18 06:30 Dose: 40 mg Rivaroxaban (Xarelto) 20 mg PO DAILY [facility] Sodium Chloride (Saline Flush) 10 ml FLUSH ASDIRECTED PRN PRN Reason: Keep Vein Open Sodium Chloride (Saline Flush) 2.5 ml FLUSH ASDIRECTED PRN PRN Reason: Keep Vein Open Discontinued Medications Albuterol/Ipratropium (Duoneb 3.0-0.5 Mg/3 Ml) 3 ml NEB ONETIME ONE Stop: 04/01/18 08:59 Last Admin: 04/01/18 09:04 Dose: 3 ml Albuterol/Ipratropium (Duoneb 3.0-0.5 Mg/3 Ml) 3 ml NEB ONETIME ONE Stop: 04/01/18 09:03 Last Admin: 04/01/18 10:37 Dose: Not Given Aspirin (Aspirin) 324 mg PO ONETIME ONE Stop: 04/01/18 10:45 Last Admin: 04/01/18 10:48 Dose: 324 mg Sodium Chloride (Normal Saline) 1,000 mls @ 83 mls/hr IV ASDIRECTED [facility] Last Admin: 04/01/18 09:54 Dose: 83 mls/hr Isosorbide Mononitrate (Imdur) 30 mg PO DAILY [facility] Last Admin: 04/01/18 12:22 Dose: Not Given Methylprednisolone Sodium Succinate (Solu-Medrol) 125 mg IVPUSH ONETIME ONE Stop: 04/01/18 09:11 Last Admin: 04/01/18 09:29 Dose: 125 mg Pantoprazole Sodium (Protonix Iv) 40 mg IVPUSH NOW ONE Stop: 04/01/18 11:58 Last Admin: 04/01/18 13:15 Dose: 40 mg - Exam Quality Assessment: Supplemental Oxygen (1 L NC, being weaned as possible), DVT Prophylaxis General: Alert, Oriented, Cooperative, No Acute Distress HEENT: Pupils Equal, Pupils Reactive, EOMI, Mucous Membr. Moist/[place] Neck: Supple Lungs: Clear to Auscultation, Normal Respiratory Effort Cardiovascular: Regular Rate, Regular Rhythm Back Exam: Normal Inspection, Full Range of Motion Extremities: Normal Inspection, Normal Range of Motion, Non-Tender, No Pedal Edema, Normal Capillary Refill Neurological: No New Focal Deficit Psy/Mental Status: Alert, Normal Affect, Normal Mood - Problem List & Annotations (1) Acute and chronic respiratory failure SNOMED Code(s): 44334398 Code(s): J96.20 - ACUTE AND CHR RESP FAILURE, UNSP W HYPOXIA OR HYPERCAPNIA Status: Acute Current Visit: Yes Qualifiers: Respiratory failure complication: hypoxia Qualified Code(s): J96.21 - Acute and chronic respiratory failure with hypoxia (2) COPD exacerbation SNOMED Code(s): 801809099 Code(s): J44.1 - CHRONIC OBSTRUCTIVE PULMONARY DISEASE W (ACUTE) EXACERBATION Status: Acute Current Visit: Yes (3) Hypoxia SNOMED Code(s): 987131443 Code(s): R09.02 - HYPOXEMIA Status: Acute Current Visit: Yes (4) Elevated troponin SNOMED Code(s): 664945782, 599866480, 616498394 Code(s): R74.8 - ABNORMAL LEVELS OF OTHER SERUM ENZYMES Status: Acute Current Visit: Yes (5) CAD (coronary artery disease) SNOMED Code(s): 29451291 Code(s): I25.10 - ATHSCL HEART DISEASE OF [place] CORONARY ARTERY W/O ANG PCTRS Status: Chronic Current Visit: Yes (6) S/P CABG x 2 SNOMED Code(s): 902397779, 611520011, 127674911 Code(s): Z95.1 - PRESENCE OF AORTOCORONARY BYPASS GRAFT Status: Chronic Current Visit: Yes (7) HTN (hypertension) SNOMED Code(s): 61367121 Code(s): I10 - ESSENTIAL (PRIMARY) HYPERTENSION Status: Chronic Current Visit: Yes Qualifiers: Hypertension type: essential hypertension Qualified Code(s): I10 - Essential (primary) hypertension (8) DVT (deep venous thrombosis) SNOMED Code(s): 637629214 Code(s): I82.409 - ACUTE EMBOLISM AND THOMBOS UNSP DEEP VN UNSP LOWER EXTREMITY Status: Chronic Current Visit: Yes Qualifiers: DVT location: lower extremity Chronicity: chronic Laterality: left (9) Pulmonary embolism SNOMED Code(s): 30047023 Code(s): I26.99 - OTHER PULMONARY EMBOLISM WITHOUT ACUTE COR PULMONALE Status: Chronic Current Visit: Yes Qualifiers: Pulmonary embolism type: other Chronicity: chronic Acute cor pulmonale presence: without acute cor pulmonale Qualified Code(s): I27.82 - Chronic pulmonary embolism - Problem List Review Problem List Initiated/Reviewed/Updated: Yes - My Orders Last 24 Hours: My Active Orders 04/01/18 11:58 Albuterol [Proventil Neb Soln] 2.5 mg NEB Q2H PRN 04/01/18 11:59 RT Aerosol Therapy [RC] ASDIRECTED 04/01/18 12:00 Telemetry Monitoring [Cardiac Monitoring] [RC] . DIRECTED 04/01/18 12:01 Height and Weight [RC] DAILY Up ad Grace [RC] ASDIRECTED Acetaminophen [Tylenol] 650 mg PO Q4H PRN Docusate Sodium [Colace] 100 mg PO BID PRN Ondansetron [Zofran ODT] 4 mg PO Q4H PRN Resuscitation Status Routine 04/01/18 12:02 Intake and Output [RC] QSHIFT Oxygen Therapy [RC] PRN VTE/DVT Education [RC] PER UNIT ROUTINE Vital Signs [RC] Q4H 04/01/18 12:15 Azithromycin [Zithromax] 500 mg PO Q24H Carvedilol [Coreg] 6.25 mg PO BID 04/01/18 14:00 Albuterol/Ipratropium [DuoNeb 3.0-0.5 MG/3 ML] 3 ml NEB Q4HRRT 04/01/18 17:00 methylPREDNISolone Sod Succ [Solu-MEDROL] 125 mg IVPUSH Q8H 04/01/18 Lunch Heart Healthy Diet [DIET] 04/02/18 07:30 Pantoprazole [ProTONIX] 40 mg PO ACBREAKFAST 04/02/18 09:00 Aspirin [Halfprin] 81 mg PO DAILY Rivaroxaban [Xarelto] 20 mg PO DAILY atorvaSTATin [Lipitor] 40 mg PO DAILY 04/03/18 05:11 BMP [BASIC METABOLIC PANEL,BMP] [CHEM] AM CBC WITH AUTO DIFF [HEME] AM - Plan Plan:: This 67 year old male admitted with acute on chronic respiratory failure, COPD exacerbation and elevate troponin 1. Acute on chronic respiratory failure with hypoxia: COPD exacerbation expected secondary to wheezing and hypoxia. Decrease Solumedrol 125 mg IV to Q12hr and monitor today. Continue Duonebs and encourage IS. Azithromycin 500 mg daily. Oxygen as needed to keep sats 88% and above. Wean as possible. May need follow up with pulmonology regarding pulmonary findings on chest CT. 2. Elevated troponin: NO chest pain. troponins stable with no significant elevation. 3. HTN: Stable. Continue Coreg and Imdur, hold Losartan due to slightl elevation in BUN. 4. CAD: Stable. Continue ASA and statin. Continue Coreg. 5 DVT/PE: Continue Xarelto. Stable. VTE prophyalxis: Xarelto GI prophylaxis: Protonix Dispo: possible DC in am.
[2018-04-02] MEDS: Carvedilol 6.25 MG Tab PO SCH ×2 (08:44→20:25)
[2018-04-02] MEDS: atorvaSTATin 40 MG Tab PO SCH (08:45)
[2018-04-02] MEDS: Aspirin 81 MG Tab.EC PO SCH (08:45)
[2018-04-02] MEDS: Rivaroxaban 10 MG Tab PO SCH (08:46)
[2018-04-02] MEDS: Nicotine 14 MG/24 Hr Patch TRDERM SCH (11:11)
[2018-04-02] MEDS: Isosorbide Mononitrate 30 MG Tab.ER PO SCH (11:11)
[2018-04-02] MEDS: Azithromycin 250 MG Tab PO SCH (11:15)
[2018-04-03] MEDS: Albuterol/Ipratropium 3.0-0.5 MG/3 ML Neb Soln NEB SCH ×3 (01:24→09:33)
[2018-04-03] MEDS: Pantoprazole 40 MG Tab.CR PO SCH (06:32)
--- NOTE | 2018-04-03 08:29 | PCM.DCSUM1 ---
Discharge Summary - Discharge Data Discharge Date: 04/03/18 Discharge Disposition: Home, Self-Care 01 Condition: Good - Patient Summary/Data Hospital Course: 67 year old male with pmh of COPD, CAD, CABG x 2 with last being 4 yrs ago, HTN , tobacco abuse and recent dx of PE and DVT presented to the ED with complaints of dizziness, lightheadedness, shortness of breath and wheezing. No leukocytosis noted, Hgb 12.8, BMP WNL, Cr 1.3. Troponin was elevated 0.184. UA negative. Orthostatic BP obtained which showed slight changed, but no orthostasis, Lying 107/69, sitting 107/69 and standing 91/66. He was also noted to be hypoxic on RA 88%. CXR plate like atelectasis at the right lung base with suggestion of pleural effusion. Consolidation in the central perihilar portion of the left lung which was seen on CT scan and patient had been treated for pneumonia. Head CT negative. He was admitted and treated for COPD exacerbation with solumedrol, duonebs, and azithromycin. His troponins were trended and remained stable. He did have improvement in his wheezing and lightheadedness and today he is requesting discharge. He was discharged home to follow up with Dr. Velasco. - Patient Instructions Diet: Regular Diet as Tolerated - Discharge Plan Prescriptions/Med Rec: Albuterol Sulfate [Proair Hfa] 1 - 2 puff INH Q4HR PRN #1 hfa.aer.ad PRN Reason: sob Azithromycin [Zithromax] 250 mg PO Q24H #4 tablet Pantoprazole [ProTONIX] 40 mg PO ACBREAKFAST #14 tab.cr predniSONE [Prednisone] 50 mg PO DAILY #5 tablet Home Medications: Home Meds Aspirin [Lo-Dose Aspirin EC] 81 mg PO DAILY 04/01/18 [History] Carvedilol 6.25 mg PO BID 04/01/18 [History] Isosorbide Mononitrate [Imdur] 30 mg PO DAILY 04/01/18 [History] Losartan Potassium 50 mg PO DAILY 04/01/18 [History] Rivaroxaban [Xarelto] 15 mg PO DAILY 04/01/18 [History] atorvaSTATin Calcium [Atorvastatin Calcium] 40 mg PO DAILY 04/01/18 [History] Albuterol Sulfate [Proair Hfa] 1 - 2 puff INH Q4HR PRN #1 hfa.aer.ad 04/03/18 [ Rx] Azithromycin [Zithromax] 250 mg PO Q24H #4 tablet 04/03/18 [Rx] Pantoprazole [ProTONIX] 40 mg PO ACBREAKFAST #14 tab.cr 04/03/18 [Rx] predniSONE [Prednisone] 50 mg PO DAILY #5 tablet 04/03/18 [Rx] Referrals: PCP,None [Primary Care Provider] - - Patient Data Vitals - Most Recent: Last Vital Signs Temp 36.6 C 04/03/18 02:55 Pulse 84 04/03/18 02:55 Resp 20 04/03/18 02:55 BP 129/81 04/03/18 02:55 Pulse Ox 92 L 04/03/18 02:55 Orthostatic Blood Pressure [ 111/75 Standing] Orthostatic Blood Pressure [ 113/70 Sitting] Orthostatic Blood Pressure [ 113/63 Supine] Weight - Most Recent: 81.647 kg I&O - Last 24 hours: Intake & Output 04/02/18 04/03/18 04/03/18 22:59 06:59 14:59 Intake Total 1920 900 Output Total 1305 1700 Balance 615 -800 Lab Results - Last 24 hrs: Laboratory Results - last 24 hr 04/03/18 04/03/18 Range/Units 06:05 06:05 WBC 11.91 H (4.0-11.0) K/uL RBC 3.70 L (4.50-5.90) M/uL Hgb 11.8 L (13.0-17.0) g/dL Hct 34.7 L (38.0-50.0) % MCV 93.8 (80.0-98.0) fL MCH 31.9 (27.0-32.0) pg MCHC 34.0 (31.0-37.0) g/dL RDW Std Deviation 46.1 (28.0-62.0) fl RDW Coeff of [place] 13 (11.0-15.0) % Plt Count 183 (150-400) K/uL MPV 11.40 (7.40-12.00) fL Neut % (Auto) 90.5 H (48.0-80.0) % Lymph % (Auto) 5.7 L (16.0-40.0) % [place] % (Auto) 3.8 (0.0-15.0) % Eos % (Auto) 0.0 (0.0-7.0) % Baso % (Auto) 0.0 (0.0-1.5) % Neut # (Auto) 10.8 H (1.4-5.7) K/uL Lymph # (Auto) 0.7 (0.6-2.4) K/uL [place] # (Auto) 0.5 (0.0-0.8) K/uL Eos # (Auto) 0.0 (0.0-0.7) K/uL Baso # (Auto) 0.0 (0.0-0.1) K/uL Nucleated RBC % 0.0 /100WBC Nucleated RBCs # 0 K/uL Sodium 135 L (136-148) mmol/L Potassium 4.2 (3.5-5.1) mmol/L Chloride 100 (98-107) mmol/L Carbon Dioxide 25.8 (21.0-32.0) mmol/L BUN 35 H (7.0-18.0) mg/dL Creatinine 1.4 H (0.8-1.3) mg/dL Est Cr Clr Drug Dosing 52.60 mL/min Estimated GFR (MDRD) 50.9 ml/min Glucose 153 H (74-106) mg/dL Calcium 8.9 (8.5-10.1) mg/dL Med Orders - Current: Current Medications Acetaminophen (Tylenol) 650 mg PO Q4H PRN PRN Reason: Pain (mild 1-3) Last Admin: 04/03/18 02:45 Dose: 650 mg Albuterol (Proventil Neb Soln) 2.5 mg NEB Q2H PRN PRN Reason: Shortness Of Breath/wheezing Albuterol/Ipratropium (Duoneb 3.0-0.5 Mg/3 Ml) 3 ml NEB Q4HRRT [facility] Last Admin: 04/03/18 06:05 Dose: 3 ml Aspirin (Halfprin) 81 mg PO DAILY [facility] Last Admin: 04/02/18 08:45 Dose: 81 mg Atorvastatin Calcium (Lipitor) 40 mg PO DAILY [facility] Last Admin: 04/02/18 08:45 Dose: 40 mg Azithromycin (Zithromax) 500 mg PO Q24H [facility] Last Admin: 04/02/18 11:15 Dose: 500 mg Carvedilol (Coreg) 6.25 mg PO BID [facility] Last Admin: 04/02/18 20:25 Dose: 6.25 mg Docusate Sodium (Colace) 100 mg PO BID PRN PRN Reason: Constipation Isosorbide Mononitrate (Imdur) 30 mg PO DAILY [facility] Last Admin: 04/02/18 11:11 Dose: 30 mg Methylprednisolone Sodium Succinate (Solu-Medrol) 125 mg IVPUSH Q12H [facility] Last Admin: 04/02/18 20:26 Dose: 125 mg Nicotine (Habitrol) 14 mg TRDERM DAILY [facility] Last Admin: 04/02/18 11:11 Dose: 14 mg Ondansetron HCl (Zofran Odt) 4 mg PO Q4H PRN PRN Reason: nausea, able to take PO Pantoprazole Sodium (Protonix) 40 mg PO ACBREAKFAST [facility] Last Admin: 04/03/18 06:32 Dose: 40 mg Rivaroxaban (Xarelto) 20 mg PO DAILY [facility] Last Admin: 04/02/18 08:46 Dose: 20 mg Sodium Chloride (Saline Flush) 10 ml FLUSH ASDIRECTED PRN PRN Reason: Keep Vein Open Sodium Chloride (Saline Flush) 2.5 ml FLUSH ASDIRECTED PRN PRN Reason: Keep Vein Open Discontinued Medications Albuterol/Ipratropium (Duoneb 3.0-0.5 Mg/3 Ml) 3 ml NEB ONETIME ONE Stop: 04/01/18 08:59 Last Admin: 04/01/18 09:04 Dose: 3 ml Albuterol/Ipratropium (Duoneb 3.0-0.5 Mg/3 Ml) 3 ml NEB ONETIME ONE Stop: 04/01/18 09:03 Last Admin: 04/01/18 10:37 Dose: Not Given Aspirin (Aspirin) 324 mg PO ONETIME ONE Stop: 04/01/18 10:45 Last Admin: 04/01/18 10:48 Dose: 324 mg Sodium Chloride (Normal Saline) 1,000 mls @ 83 mls/hr IV ASDIRECTED [facility] Last Admin: 04/01/18 09:54 Dose: 83 mls/hr Isosorbide Mononitrate (Imdur) 30 mg PO DAILY [facility] Last Admin: 04/01/18 12:22 Dose: Not Given Methylprednisolone Sodium Succinate (Solu-Medrol) 125 mg IVPUSH ONETIME ONE Stop: 04/01/18 09:11 Last Admin: 04/01/18 09:29 Dose: 125 mg Methylprednisolone Sodium Succinate (Solu-Medrol) 125 mg IVPUSH Q8H [facility] Last Admin: 04/02/18 09:30 Dose: 125 mg Pantoprazole Sodium (Protonix Iv) 40 mg IVPUSH NOW ONE Stop: 04/01/18 11:58 Last Admin: 04/01/18 13:15 Dose: 40 mg
[2018-04-03] MEDS: Rivaroxaban 10 MG Tab PO SCH (08:35)
[2018-04-03] MEDS: atorvaSTATin 40 MG Tab PO SCH (08:35)
[2018-04-03] MEDS: Aspirin 81 MG Tab.EC PO SCH (08:37)
[2018-04-03] MEDS: Isosorbide Mononitrate 30 MG Tab.ER PO SCH (08:37)
[2018-04-03] MEDS: Carvedilol 6.25 MG Tab PO SCH (08:39)
[2018-04-03] MEDS: Nicotine 14 MG/24 Hr Patch TRDERM SCH (08:40)
[2018-04-03] MEDS: methylPREDNISolone Sodium Succinate 125 MG/2 ML SDV IVPUSH SCH (08:41)
== END 2018-04-03 10:15 | disposition home or self-care (01) ==
LOC: MW.ED 08:44 → MW.MS 10:40
PROVIDERS: ADMIT Internal Medicine; ATTEND Internal Medicine
DX: J44.1 Chronic obstructive pulmonary disease with (acute) exacerbation (principal); I27.82 Chronic pulmonary embolism; I82.409 Acute embolism and thrombosis of unspecified deep veins of unspecified lower extremity; J96.21 Acute and chronic respiratory failure with hypoxia; I25.10 Atherosclerotic heart disease of native coronary artery without angina pectoris; Z95.1 Presence of aortocoronary bypass graft; I10 Essential (primary) hypertension; F17.210 Nicotine dependence, cigarettes, uncomplicated; R74.8 Abnormal levels of other serum enzymes; F52.21 Male erectile disorder; E78.00 Pure hypercholesterolemia, unspecified; Z79.82 Long term (current) use of aspirin; Z79.899 Other long term (current) drug therapy; Z79.01 Long term (current) use of anticoagulants
CPT/HCPCS: 36415; 70450; 71045; 80048; 80053; 81001; 84443; 84484; 85025; 85610; 93005; 94640; 96361; 96374; 99285; A9270; C9113; J2930; J7040; 99284

== ENCOUNTER 2018-04-06 01:29 | Emergency (ER) | payer BC ==
[2018-04-06] MEDS ORDERED: Sodium Chloride 0.9% 2.5 ML Syringe FLUSH PRN ×2 (01:46)
[2018-04-06] MEDS ORDERED: Aspirin 81 MG Tab.Chew PO ONE (01:46)
[2018-04-06] MEDS ORDERED: Sodium Chloride 0.9% 10 ML Syringe FLUSH PRN (01:46)
[2018-04-06] MEDS ORDERED: Sodium Chloride 0.9% 1,000 ML IV ONE (01:46)
--- NOTE | 2018-04-06 01:59 | EDM.PDOC ---
ED HPI GENERAL MEDICAL PROBLEM - General Chief Complaint: Neurological Problem Stated Complaint: LOW BLOOD PRESSURE Time Seen by Provider: 04/06/18 01:53 Source of Information: Reports: Patient, Family History Limitations: Reports: No Limitations - History of Present Illness INITIAL COMMENTS - FREE TEXT/NARRATIVE: HISTORY AND PHYSICAL: History of present illness: 67-year-old male presenting emergency department with daughter with chief complaint of confusion 26 minutes with past history of COPD, CAD, CABG 2, hypertension, 40+ years smoking. Recent PE and DVT on Xarelto 20mg q day. Patient states that he feels very confused. Daughter states that this morning around 11:00 he woke and was very unstable and dizzy and seemed very confused. This reoccurred approximately 20 minutes ago. Where she states that he had slower speech was confused and had difficulty expressing himself. However, she believes that his last known normal was Friday 6/ a.m. He has had episodes of confusion since. She denied any facial drooping or other focal neurologic deficits. Patient was recently hospitalized for COPD exacerbation discharged 04/03. He is on Xarelto 20 mg by mouth daily for this. Out of window for TPA or thrombectomy as last normal >24 hrs Initial NIH score 3, GCS 14 CT the head was suspicious for bilateral subacute frontal ischemia as well as left parietal. On exam patient had a sensory give said on the posterior aspect of the right hand to sharp touch. Patient was confused as to date but did note [place], and place. He also had mild dysphagia. Neurology as well as ER Sara Garcia called Dr. Guaman accepting patient and patient Review of systems: As per history of present illness and below otherwise all systems reviewed and negative. Past medical history: As per history of present illness and as reviewed below otherwise noncontributory. Surgical history: As per history of present illness and as reviewed below otherwise noncontributory. Social history: No reported history of drug or alcohol abuse. Family history: As per history of present illness and as reviewed below otherwise noncontributory. Physical exam: HEENT: Atraumatic, normocephalic, pupils reactive, negative for conjunctival pallor or scleral icterus, mucous membranes moist, throat clear, neck supple, nontender, trachea midline. Lungs: Clear to auscultation, breath sounds equal bilaterally, chest nontender. Heart: S1S2, regular, negative for clicks, rubs, or JVD. Abdomen: Soft, nondistended, nontender. Negative for masses or hepatosplenomegaly. Negative for costovertebral tenderness. Pelvis: Stable nontender. Genitourinary: Deferred. Rectal: Deferred. Extremities: Atraumatic, negative for cords or calf pain. Neurovascular unremarkable. Neuro: Awake, alert, oriented. Cranial nerves II through XII unremarkable. See H &P Diagnostics: CBC, CMP, troponin, CT head, TSH, INR, chest x-ray, EKG Therapeutics: ASA Impression: CVA See H&P. Subacute findings of ischemic found on CT. Patient had a therapeutic window. Patient transferred to [facility] with Dr. Guaman accepting. Plan: [] - Related Data Allergies Allergy/AdvReac Type Severity Reaction Status Date / Time No Known Allergies Allergy Verified 04/01/18 12:06 Home Meds: Home Meds Aspirin [Lo-Dose Aspirin EC] 81 mg PO DAILY 04/01/18 [History] Carvedilol 6.25 mg PO BID 04/01/18 [History] Isosorbide Mononitrate [Imdur] 30 mg PO DAILY 04/01/18 [History] Losartan Potassium 50 mg PO DAILY 04/01/18 [History] Rivaroxaban [Xarelto] 15 mg PO DAILY 04/01/18 [History] atorvaSTATin Calcium [Atorvastatin Calcium] 40 mg PO DAILY 04/01/18 [History] Albuterol Sulfate [Proair Hfa] 1 - 2 puff INH Q4HR PRN #1 hfa.aer.ad 04/03/18 [ Rx] Azithromycin [Zithromax] 250 mg PO Q24H #4 tablet 04/03/18 [Rx] Pantoprazole [ProTONIX] 40 mg PO ACBREAKFAST #14 tab.cr 04/03/18 [Rx] predniSONE [Prednisone] 50 mg PO DAILY #5 tablet 04/03/18 [Rx] Past Medical History HEENT History: Reports: Impaired Vision Cardiovascular History: Reports: Blood Clots/VTE/DVT, Bypass, CAD, High Cholesterol, Hypertension, SOB on Exertion Respiratory History: Reports: COPD, PE Gastrointestinal History: Reports: None Genitourinary History: Reports: None Musculoskeletal History: Reports: None Neurological History: Reports: None Psychiatric History: Reports: None Endocrine/Metabolic History: Reports: None - Infectious Disease History Infectious Disease History: Reports: Other (See Below) Other Infectious Disease History: unable to remember - Past Surgical History Cardiovascular Surgical History: Reports: Coronary Artery Bypass Social & Family History - Family History Family Medical History: Noncontributory Respiratory: Reports: Other (See Below) Other Respiratory Family Hisory: Father of lung CA - Tobacco Use Smoking Status *Q: Current Every Day Smoker Years of Tobacco use: 40 Packs/Tins Daily: 0.5 - Caffeine Use Caffeine Use: Reports: Coffee - Recreational Drug Use Recreational Drug Use: No - Living Situation & Occupation Living situation: Reports: Single Occupation: Employed (but hasn't worked in over 1 month.) ED ROS GENERAL - Review of Systems Review Of Systems: ROS reveals no pertinent complaints other than HPI. ED EXAM, GENERAL - Physical Exam Exam: See Below Course - Vital Signs Last Recorded V/S: Last Vital Signs Temp Pulse Resp BP 149/95 H 04/06/18 01:48 Pulse Ox - Orders/Labs/Meds Orders: Active Orders 24 hr Category Date Time Status Assess Neurological Status [RC] ASDIRECTED Care 04/06/18 01:46 Active Bedrest [RC] ASDIRECTED Care 04/06/18 01:46 Active Blood Glucose Check, Bedside [RC] STAT Care 04/06/18 01:46 Active Cardiac Monitoring [RC] . DIRECTED Care 04/06/18 01:46 Active EKG Documentation Completion [RC] STAT Care 04/06/18 01:46 Active Height and Weight [RC] UPON Care 04/06/18 01:46 Active Initiate Acute Stroke Protocol [RC] STAT Care 04/06/18 01:46 Active NIH Stroke Scale [RC] ASDIRECTED Care 04/06/18 01:46 Active Nursing Bedside Swallow Screen [RC] ASDIRECTED Care 04/06/18 01:46 Active Oxygen Therapy [RC] ASDIRECTED Care 04/06/18 01:46 Active Peripheral IV Care [RC] . DIRECTED Care 04/06/18 01:46 Active Stroke Education, General [RC] Click to Edit Care 04/06/18 01:46 Active Vital Signs [RC] Q15M Care 04/06/18 01:46 Active Chest 1V Frontal [CR] Stat Exams 04/06/18 01:47 Taken Head wo Cont [CT] Stat Exams 04/06/18 01:46 Taken COMPREHENSIVE METABOLIC PN,CMP [CHEM] Stat Lab 04/06/18 01:35 Received TROPONIN I [CHEM] Stat Lab 04/06/18 01:35 Received TSH [CHEM] Stat Lab 04/06/18 01:35 Received UA W/MICROSCOPIC [URIN] Stat Lab 04/06/18 01:47 Ordered Sodium Chloride 0.9% [Normal Saline] 1,000 ml Med 04/06/18 01:46 Active IV .Bolus Sodium Chloride 0.9% [Saline Flush] Med 04/06/18 01:46 Active 10 ml FLUSH ASDIRECTED PRN Sodium Chloride 0.9% [Saline Flush] Med 04/06/18 01:46 Active 2.5 ml FLUSH ASDIRECTED PRN Sodium Chloride 0.9% [Saline Flush] Med 04/06/18 01:46 Active 2.5 ml FLUSH ASDIRECTED PRN Peripheral IV Insertion Adult [OM.PC] Stat Ot 04/06/18 01:46 Ordered Peripheral IV Insertion Adult [OM.PC] Stat Ot 04/06/18 01:46 Ordered Resuscitation Status Stat Resus Stat 04/06/18 01:46 Ordered Medication Orders Sodium Chloride (Normal Saline) 1,000 mls @ 999 mls/hr IV .Bolus ONE Stop: 04/06/18 02:46 Last Admin: 04/06/18 02:08 Dose: 999 mls/hr Sodium Chloride (Saline Flush) 10 ml FLUSH ASDIRECTED PRN PRN Reason: Keep Vein Open Last Admin: 04/06/18 02:09 Dose: 10 ml Sodium Chloride (Saline Flush) 2.5 ml FLUSH ASDIRECTED PRN PRN Reason: Keep Vein Open Last Admin: 04/06/18 02:09 Dose: 2.5 ml Sodium Chloride (Saline Flush) 2.5 ml FLUSH ASDIRECTED PRN PRN Reason: Keep Vein Open Last Admin: 04/06/18 02:10 Dose: 2.5 ml Labs: Laboratory Tests 04/06/18 04/06/18 Range/Units 01:35 01:35 WBC 11.72 H (4.0-11.0) K/uL RBC 3.86 L (4.50-5.90) M/uL Hgb 12.4 L (13.0-17.0) g/dL Hct 35.9 L (38.0-50.0) % MCV 93.0 (80.0-98.0) fL MCH 32.1 H (27.0-32.0) pg MCHC 34.5 (31.0-37.0) g/dL RDW Std Deviation 44.3 (28.0-62.0) fl RDW Coeff of Saman 13 (11.0-15.0) % Plt Count 155 (150-400) K/uL MPV 10.80 (7.40-12.00) fL Neut % (Auto) 75.5 (48.0-80.0) % Lymph % (Auto) 13.7 L (16.0-40.0) % [place] % (Auto) 10.2 (0.0-15.0) % Eos % (Auto) 0.5 (0.0-7.0) % Baso % (Auto) 0.1 (0.0-1.5) % Neut # (Auto) 8.9 H (1.4-5.7) K/uL Lymph # (Auto) 1.6 (0.6-2.4) K/uL [place] # (Auto) 1.2 H (0.0-0.8) K/uL Eos # (Auto) 0.1 (0.0-0.7) K/uL Baso # (Auto) 0.0 (0.0-0.1) K/uL Nucleated RBC % 0.0 /100WBC Nucleated RBCs # 0 K/uL INR 1.25 APTT 24.6 (18.6-31.3) SEC Meds: Medications Generic Name Dose Route Start Last Admin Trade Name Freq PRN Reason Stop Dose Admin Sodium Chloride 1,000 mls @ 999 mls/hr 04/06/18 01:46 04/06/18 02:08 Normal Saline IV 04/06/18 02:46 999 mls/hr .Bolus ONE Administration Sodium Chloride 10 ml 04/06/18 01:46 04/06/18 02:09 Saline Flush FLUSH 10 ml ASDIRECTED PRN Administration Keep Vein Open Sodium Chloride 2.5 ml 04/06/18 01:46 04/06/18 02:09 Saline Flush FLUSH 2.5 ml ASDIRECTED PRN Administration Keep Vein Open Sodium Chloride 2.5 ml 04/06/18 01:46 04/06/18 02:10 Saline Flush FLUSH 2.5 ml ASDIRECTED PRN Administration Keep Vein Open Discontinued Medications Generic Name Dose Route Start Last Admin Trade Name Ryan PRN Reason Stop Dose Admin Aspirin 81 mg 04/06/18 01:46 04/06/18 02:08 Aspirin PO 04/06/18 01:47 81 mg ONETIME ONE Administration Departure - Departure Time of Disposition: 02:27 Disposition: DC/Tfer to Other 70 Condition: Fair Clinical Impression: Stroke with cerebral ischemia - Discharge Information Referrals: Andrae Velasco MD [Primary Care Provider] - Forms: ED Department Discharge - My Orders Last 24 Hours: My Active Orders 04/06/18 01:35 COMPREHENSIVE METABOLIC PN,CMP [CHEM] Stat TROPONIN I [CHEM] Stat TSH [CHEM] Stat 04/06/18 01:46 Assess Neurological Status [RC] ASDIRECTED Bedrest [RC] ASDIRECTED Blood Glucose Check, Bedside [RC] STAT Cardiac Monitoring [RC] . DIRECTED EKG Documentation Completion [RC] STAT Height and Weight [RC] UPON Initiate Acute Stroke Protocol [RC] STAT NIH Stroke Scale [RC] ASDIRECTED Nursing Bedside Swallow Screen [RC] ASDIRECTED Oxygen Therapy [RC] ASDIRECTED Peripheral IV Care [RC] . DIRECTED Stroke Education, General [RC] Click to Edit Vital Signs [RC] Q15M Head wo Cont [CT] Stat Sodium Chloride 0.9% [Normal Saline] 1,000 ml IV .Bolus Sodium Chloride 0.9% [Saline Flush] 10 ml FLUSH ASDIRECTED PRN Sodium Chloride 0.9% [Saline Flush] 2.5 ml FLUSH ASDIRECTED PRN Sodium Chloride 0.9% [Saline Flush] 2.5 ml FLUSH ASDIRECTED PRN Peripheral IV Insertion Adult [OM.PC] Stat Peripheral IV Insertion Adult [OM.PC] Stat Resuscitation Status Stat 04/06/18 01:47 Chest 1V Frontal [CR] Stat UA W/MICROSCOPIC [URIN] Stat - Assessment/Plan Last 24 Hours: My Active Orders 04/06/18 01:35 COMPREHENSIVE METABOLIC PN,CMP [CHEM] Stat TROPONIN I [CHEM] Stat TSH [CHEM] Stat 04/06/18 01:46 Assess Neurological Status [RC] ASDIRECTED Bedrest [RC] ASDIRECTED Blood Glucose Check, Bedside [RC] STAT Cardiac Monitoring [RC] . DIRECTED EKG Documentation Completion [RC] STAT Height and Weight [RC] UPON Initiate Acute Stroke Protocol [RC] STAT NIH Stroke Scale [RC] ASDIRECTED Nursing Bedside Swallow Screen [RC] ASDIRECTED Oxygen Therapy [RC] ASDIRECTED Peripheral IV Care [RC] . DIRECTED Stroke Education, General [RC] Click to Edit Vital Signs [RC] Q15M Head wo Cont [CT] Stat Sodium Chloride 0.9% [Normal Saline] 1,000 ml IV .Bolus Sodium Chloride 0.9% [Saline Flush] 10 ml FLUSH ASDIRECTED PRN Sodium Chloride 0.9% [Saline Flush] 2.5 ml FLUSH ASDIRECTED PRN Sodium Chloride 0.9% [Saline Flush] 2.5 ml FLUSH ASDIRECTED PRN Peripheral IV Insertion Adult [OM.PC] Stat Peripheral IV Insertion Adult [OM.PC] Stat Resuscitation Status Stat 04/06/18 01:47 Chest 1V Frontal [CR] Stat UA W/MICROSCOPIC [URIN] Stat
[2018-04-06] MEDS ORDERED: Aspirin 81 MG Tab.Chew PO STA (02:39)
[2018-04-06] MEDS ORDERED: Aspirin 81 MG Tab.Chew PO SCH (09:00)
--- NOTE | 2018-04-07 16:41 | CT ---
EXAM DATE: 04/06/18 PATIENT'S AGE: 67 Patient: ÓSCAR WANG Facility: [facility] Site . Site : 1950 Study: CT-Head [id number]/4/2018 1:58:14 AM Ordering Physician: Doctor De Los Santos Final Report: INDICATION: Confusion TECHNIQUE: CT Head without i.v. contrast. CONTRAST: None COMPARISON: 04/01/2018 FINDINGS: CSF spaces: Unremarkable for age. Brain: Chronic small infarcts in the cerebral hemispheres are noted without interval change. No mass-effect or midline shift is seen. Mild diffuse cortical atrophy is noted. New patchy areas of cortical low-density are present within the frontal lobes and the left parietal lobe. Calvarium: The visualized paranasal sinuses are well aerated. The mastoid air cells are clear. The visualized orbits are grossly unremarkable. The calvarium is unremarkable in appearance with no fractures identified. IMPRESSION: 1. New patchy areas of cortical low-density are present within the frontal lobes and the left parietal lobe. Knees are likely to represent subacute infarcts. The findings were discussed with Dr. Condon at 2:03 AM. Dictated by Josué Cool MD @ 04/06/2018 2:01:38 AM Please note that all CT scans at this facility use dose modulation, iterative reconstruction, and/or weight-based dosing when appropriate to reduce radiation dose to as low as reasonably achievable. Dictated by: Josué Cool MD @ 04/06/2018 02:04:37 Signed by: Josué Cool MD @04/06/2018 2:04:37 AM (Electronic Signature) Report Signed by Proxy. ANJUM
--- NOTE | 2018-04-08 09:53 | CR ---
EXAM DATE: 04/06/18 PATIENT'S AGE: 67 Patient: ÓSCAR WANG Facility: [facility] Site Site : 1950 Study: XRay-Chest [id number]/4/2018 4:53:21 PM Ordering Physician: Kaitlin Mason Final Report: Indication: Stroke Technique: Chest 1 view Comparison: April 01, 2018 Findings/Impression: Stable cardiomegaly. Postoperative changes of a median sternotomy. Persistent patchy opacity in the left perihilar region may represent atelectasis or infection. Persistent elevation of the right hemidiaphragm with likely small amount of right pleural fluid. No pneumothorax. No acute osseous abnormality. Dictated by Lindsay Odonnell MD @ Apr 07 2018 5:02PM Signed by: Lindsay Odonnell MD @04/07/2018 5:02:57 PM (Electronic Signature) Report Signed by Proxy. [facility]
== END 2018-04-06 03:03 | disposition other institution (70) ==
LOC: MW.ED 01:29
DX: I63.9 Cerebral infarction, unspecified (principal); F17.210 Nicotine dependence, cigarettes, uncomplicated; E78.00 Pure hypercholesterolemia, unspecified; Z79.82 Long term (current) use of aspirin; Z79.899 Other long term (current) drug therapy
CPT/HCPCS: 36415; 70450; 71045; 80053; 81001; 84443; 84484; 85025; 85610; 85730; 96360; 99285; A9270; J7040; 99284

== ENCOUNTER 2018-04-20 09:37 | Emergency (ER) | payer BC ==
[2018-04-20] MEDS ORDERED: Nitroglycerin 0.4 MG Tab.SL SL ONE (09:55)
[2018-04-20] MEDS ORDERED: Sodium Chloride 0.9% 2.5 ML Syringe FLUSH PRN ×2 (09:55)
[2018-04-20] MEDS ORDERED: Sodium Chloride 0.9% 10 ML Syringe FLUSH PRN (09:55)
[2018-04-20] MEDS ORDERED: Aspirin 81 MG Tab.Chew PO ONE (09:55)
[2018-04-20] MEDS ORDERED: Sodium Chloride 0.9% 1,000 ML IV ONE ×2 (09:55→12:01)
--- NOTE | 2018-04-20 10:18 | EDM.PDOC ---
ED HPI GENERAL MEDICAL PROBLEM - General Chief Complaint: Respiratory Problem Stated Complaint: PT SPOKE TO NURSE Time Seen by Provider: 04/20/18 09:44 Source of Information: Reports: Patient History Limitations: Reports: No Limitations - History of Present Illness INITIAL COMMENTS - FREE TEXT/NARRATIVE: HISTORY AND PHYSICAL: History of present illness: 67-year-old male presenting in the emergency department with chief complaint of increasing shortness of breath with associated chest pain with history of recent bilateral PE on Coumadin, and TIA. Patient was recently seen here on Friday and found to have bilateral PE. At that time he refused admission. Approximately 2 weeks ago he had a TIA and was started on Coumadin with Lovenox bridge in [place]. Currently taking Coumadin but levels have been erratic stating that level was 12 last week. Initially started on 5 mg by mouth daily. This has been decreased and he is currently taking 2.5 mg by mouth daily. States that over the weekend he has had increasing shortness of breath and some chest pain. Pain is more tightness and has been consistent throughout last evening and today. States that he feels short of breath as in he cannot get full oxygen in with his breathing. Denies any diaphoresis, nausea or vomiting. Patient is a delivery truck driver heavy, has no family history of coagulopathies. No recent history of blood cancers. Patient does see a compensation supervisor in [place]. Dr. Wilkins. Also states that if he needs to be transferred he would prefer going to [place] where his compensation supervisor is present. He sees Dr. Velasco, as his primary care provider recently saw Dr. Cooney compensation supervisor. He has no known drug allergies. Review of systems: As per history of present illness and below otherwise all systems reviewed and negative. Past medical history: As per history of present illness and as reviewed below otherwise noncontributory. Surgical history: As per history of present illness and as reviewed below otherwise noncontributory. Social history: No reported history of drug or alcohol abuse. Family history: As per history of present illness and as reviewed below otherwise noncontributory. Physical exam: HEENT: Atraumatic, normocephalic, pupils reactive, negative for conjunctival pallor or scleral icterus, mucous membranes moist, throat clear, neck supple, nontender, trachea midline. Lungs: Clear to auscultation, decreased breath sounds generally but worse on the left mid and lower lobes, chest nontender. Heart: S1S2, regular, negative for clicks, rubs, or JVD. Abdomen: Soft, nondistended, nontender. Negative for masses or hepatosplenomegaly. Negative for costovertebral tenderness. Pelvis: Stable nontender. Genitourinary: Deferred. Rectal: Deferred. Extremities: Atraumatic, negative for cords or calf pain. Neurovascular unremarkable. Neuro: Awake, alert, oriented. Cranial nerves II through XII unremarkable. Cerebellum unremarkable. Motor and sensory unremarkable throughout. Exam nonfocal. Diagnostics: CBC, CMP, troponin, INR, chest x-ray, EKG, CT chest Therapeutics: ASA 324, 2 mg Morphine 2 Impression: Atypical chest pain History of bilateral PE History of TIA Suspect malignant lung lesion Left pleural effusion Plan: CBC, CMP, UA, troponin were unremarkable. EKG showed no acute ST changes. Spiral CT of the chest revealed: 1. Increasing left perihilar masslike area of consolidation measuring 5.2 centimeters likely neoplastic process. 2. Loculated moderate left pleural effusion. 3. Mild mediastinal and hilar lymphadenopathy. 4. Minimal residual pulmonary embolic process without evidence of an acute pulmonary embolism. All the above was communicated to the patient as well as family. I suspect that this may be a malignant process that has been the etiology of his recent symptoms. Currently, our hospitals on diversion and patient needs to be admitted for observation for his hypoxemia, still requiring 4 L per nasal cannula. Patient does have a majority of his medical work done in [facility]. In addition, patient requesting transfer to [facility] is in [place] if needed. I did call and talk with hospitalist, Dr. Silvestre, and advised him of this patient as well as his past medical history. He is accepting and patient transfer was initiated. Patient was transferred by ground ambulance. chest Pain Score (Numeric/FACES): 6 - Related Data Allergies Allergy/AdvReac Type Severity Reaction Status Date / Time No Known Allergies Allergy Verified 04/20/18 09:43 Home Meds: Home Meds Albuterol Sulfate [Proair Hfa] 8.5 gm IH DAILY PRN 04/20/18 [History] Aspirin 325 mg PO DAILY 04/20/18 [History] Carvedilol 6.25 mg PO BID 04/20/18 [History] Isosorbide Mononitrate [Imdur] 30 mg PO DAILY 04/20/18 [History] LORazepam 1 mg PO Q4HR PRN 04/20/18 [History] Losartan [Cozaar] 50 mg PO DAILY 04/20/18 [History] Pantoprazole Sodium [Protonix] 20 mg PO DAILY 04/20/18 [History] Warfarin Sodium [Coumadin] 3 mg PO DAILY 04/20/18 [History] atorvaSTATin [Lipitor] 40 mg PO BEDTIME 04/20/18 [History] Past Medical History HEENT History: Reports: Impaired Vision Cardiovascular History: Reports: Blood Clots/VTE/DVT, Bypass, CAD, High Cholesterol, Hypertension, SOB on Exertion Respiratory History: Reports: COPD, PE Gastrointestinal History: Reports: None Genitourinary History: Reports: None Musculoskeletal History: Reports: None Neurological History: Reports: None Psychiatric History: Reports: None Endocrine/Metabolic History: Reports: None - Infectious Disease History Infectious Disease History: Reports: Other (See Below) Other Infectious Disease History: unable to remember - Past Surgical History Cardiovascular Surgical History: Reports: Coronary Artery Bypass Social & Family History - Family History Family Medical History: Noncontributory Respiratory: Reports: Other (See Below) Other Respiratory Family Hisory: Father of lung CA - Tobacco Use Smoking Status *Q: Never Smoker - Caffeine Use Caffeine Use: Reports: Coffee - Recreational Drug Use Recreational Drug Use: No - Living Situation & Occupation Living situation: Reports: Single Occupation: Employed (but hasn't worked in over 1 month.) ED ROS GENERAL - Review of Systems Review Of Systems: ROS reveals no pertinent complaints other than HPI. ED EXAM, GENERAL - Physical Exam Exam: See Below Course - Vital Signs Last Recorded V/S: Last Vital Signs Temp 97.3 F 04/20/18 09:43 Pulse 85 04/20/18 10:50 Resp 28 H 04/20/18 10:50 BP 124/76 04/20/18 10:50 Pulse Ox 95 04/20/18 10:50 - Orders/Labs/Meds Orders: Active Orders 24 hr Category Date Time Status Cardiac Monitoring [RC] . DIRECTED Care 04/20/18 09:55 Active EKG Documentation Completion [RC] STAT Care 04/20/18 09:55 Active Oxygen Therapy [RC] ASDIRECTED Care 04/20/18 09:55 Active Pulse Oximetry [RC] ASDIRECTED Care 04/20/18 09:55 Active UA W/MICROSCOPIC [URIN] Stat Lab 04/20/18 10:32 Ordered Sodium Chloride 0.9% [Normal Saline] 1,000 ml Med 04/20/18 12:01 Active IV ONETIME Sodium Chloride 0.9% [Saline Flush] Med 04/20/18 09:55 Active 10 ml FLUSH ASDIRECTED PRN Sodium Chloride 0.9% [Saline Flush] Med 04/20/18 09:55 Active 2.5 ml FLUSH ASDIRECTED PRN Sodium Chloride 0.9% [Saline Flush] Med 04/20/18 09:55 Active 2.5 ml FLUSH ASDIRECTED PRN Saline Lock Insert [OM.PC] Stat Oth 04/20/18 09:55 Ordered Medication Orders Sodium Chloride (Normal Saline) 1,000 mls @ 125 mls/hr IV ONETIME ONE Stop: 04/20/18 20:00 Last Admin: 04/20/18 12:03 Dose: 125 mls/hr Sodium Chloride (Saline Flush) 2.5 ml FLUSH ASDIRECTED PRN PRN Reason: Keep Vein Open Sodium Chloride (Saline Flush) 10 ml FLUSH ASDIRECTED PRN PRN Reason: Keep Vein Open Sodium Chloride (Saline Flush) 2.5 ml FLUSH ASDIRECTED PRN PRN Reason: Keep Vein Open Labs: Laboratory Tests 04/20/18 04/20/18 04/20/18 Range/Units 09:50 09:50 09:50 WBC 7.31 (4.0-11.0) K/uL RBC 3.17 L (4.50-5.90) M/uL Hgb 10.1 L (13.0-17.0) g/dL Hct 30.3 L (38.0-50.0) % MCV 95.6 (80.0-98.0) fL MCH 31.9 (27.0-32.0) pg MCHC 33.3 (31.0-37.0) g/dL RDW Std Deviation 43.1 (28.0-62.0) fl RDW Coeff of Saman 13 (11.0-15.0) % Plt Count 180 (150-400) K/uL MPV 11.30 (7.40-12.00) fL Neut % (Auto) 72.2 (48.0-80.0) % Lymph % (Auto) 16.0 (16.0-40.0) % [place] % (Auto) 10.5 (0.0-15.0) % Eos % (Auto) 1.0 (0.0-7.0) % Baso % (Auto) 0.3 (0.0-1.5) % Neut # (Auto) 5.3 (1.4-5.7) K/uL Lymph # (Auto) 1.2 (0.6-2.4) K/uL [place] # (Auto) 0.8 (0.0-0.8) K/uL Eos # (Auto) 0.1 (0.0-0.7) K/uL Baso # (Auto) 0.0 (0.0-0.1) K/uL INR 2.56 Sodium 136 (136-148) mmol/L Potassium 4.0 (3.5-5.1) mmol/L Chloride 100 (98-107) mmol/L Carbon Dioxide 28.2 (21.0-32.0) mmol/L BUN 10 (7.0-18.0) mg/dL Creatinine 1.2 (0.8-1.3) mg/dL Est Cr Clr Drug Dosing 61.37 mL/min Estimated GFR (MDRD) > 60.0 ml/min Glucose 115 H (74-106) mg/dL Calcium 8.4 L (8.5-10.1) mg/dL Total Bilirubin 0.9 (0.2-1.0) mg/dL AST 27 (15-37) IU/L ALT 43 (14-63) IU/L Alkaline Phosphatase 114 (46-116) U/L Troponin I < 0.050 (0.000-0.056) ng/mL Total Protein 6.3 L (6.4-8.2) g/dL Albumin 2.9 L (3.4-5.0) g/dL Globulin 3.4 (2.0-3.5) g/dL Albumin/Globulin Ratio 0.9 L (1.3-2.8) Urine Color Urine Appearance Urine pH (5.0-8.0) Ur Specific [place] (1.001-1.035) Urine Protein (NEGATIVE) mg/dL Urine Glucose (UA) (NEGATIVE) mg/dL Urine Ketones (NEGATIVE) mg/dL Urine Occult Blood (NEGATIVE) Urine Nitrite (NEGATIVE) Urine Bilirubin (NEGATIVE) Urine Urobilinogen (<2.0) EU/dL Ur Leukocyte Esterase (NEGATIVE) Urine RBC (0-2/HPF) Urine WBC (0-5/HPF) Ur Epithelial Cells (NONE-FEW) Urine Bacteria (NEGATIVE) 04/20/18 Range/Units 10:32 WBC (4.0-11.0) K/uL RBC (4.50-5.90) M/uL Hgb (13.0-17.0) g/dL Hct (38.0-50.0) % MCV (80.0-98.0) fL MCH (27.0-32.0) pg MCHC (31.0-37.0) g/dL RDW Std Deviation (28.0-62.0) fl RDW Coeff of Saman (11.0-15.0) % Plt Count (150-400) K/uL MPV (7.40-12.00) fL Neut % (Auto) (48.0-80.0) % Lymph % (Auto) (16.0-40.0) % [place] % (Auto) (0.0-15.0) % Eos % (Auto) (0.0-7.0) % Baso % (Auto) (0.0-1.5) % Neut # (Auto) (1.4-5.7) K/uL Lymph # (Auto) (0.6-2.4) K/uL [place] # (Auto) (0.0-0.8) K/uL Eos # (Auto) (0.0-0.7) K/uL Baso # (Auto) (0.0-0.1) K/uL INR Sodium (136-148) mmol/L Potassium (3.5-5.1) mmol/L Chloride (98-107) mmol/L Carbon Dioxide (21.0-32.0) mmol/L BUN (7.0-18.0) mg/dL Creatinine (0.8-1.3) mg/dL Est Cr Clr Drug Dosing mL/min Estimated GFR (MDRD) ml/min Glucose (74-106) mg/dL Calcium (8.5-10.1) mg/dL Total Bilirubin (0.2-1.0) mg/dL AST (15-37) IU/L ALT (14-63) IU/L Alkaline Phosphatase (46-116) U/L Troponin I (0.000-0.056) ng/mL Total Protein (6.4-8.2) g/dL Albumin (3.4-5.0) g/dL Globulin (2.0-3.5) g/dL Albumin/Globulin Ratio (1.3-2.8) Urine Color YELLOW Urine Appearance CLEAR Urine pH 5.5 (5.0-8.0) Ur Specific [place] 1.025 (1.001-1.035) Urine Protein TRACE (NEGATIVE) mg/dL Urine Glucose (UA) NEGATIVE (NEGATIVE) mg/dL Urine Ketones NEGATIVE (NEGATIVE) mg/dL Urine Occult Blood TRACE-INTACT (NEGATIVE) Urine Nitrite NEGATIVE (NEGATIVE) Urine Bilirubin NEGATIVE (NEGATIVE) Urine Urobilinogen 0.2 (<2.0) EU/dL Ur Leukocyte Esterase NEGATIVE (NEGATIVE) Urine RBC 0-2 (0-2/HPF) Urine WBC 0-3 (0-5/HPF) Ur Epithelial Cells FEW (NONE-FEW) Urine Bacteria FEW (NEGATIVE) Meds: Medications Generic Name Dose Route Start Last Admin Trade Name Freq PRN Reason Stop Dose Admin Sodium Chloride 1,000 mls @ 125 mls/hr 04/20/18 12:01 04/20/18 12:03 Normal Saline IV 04/20/18 20:00 125 mls/hr ONETIME ONE Administration Sodium Chloride 2.5 ml 04/20/18 09:55 Saline Flush FLUSH ASDIRECTED PRN Keep Vein Open Sodium Chloride 10 ml 04/20/18 09:55 Saline Flush FLUSH ASDIRECTED PRN Keep Vein Open Sodium Chloride 2.5 ml 04/20/18 09:55 Saline Flush FLUSH ASDIRECTED PRN Keep Vein Open Discontinued Medications Generic Name Dose Route Start Last Admin Trade Name Freq PRN Reason Stop Dose Admin Aspirin 324 mg 04/20/18 09:55 04/20/18 10:11 Aspirin PO 04/20/18 09:56 324 mg ONETIME ONE Administration Sodium Chloride 1,000 mls @ 999 mls/hr 04/20/18 09:55 04/20/18 10:16 Normal Saline IV 04/20/18 10:55 999 mls/hr .Bolus ONE Administration Iopamidol 50 ml 04/20/18 11:18 04/20/18 11:20 Isovue Multipack-370 (76%) IVPUSH 04/20/18 11:19 50 ml ONETIME STA Administration Morphine Sulfate 2 mg 04/20/18 11:22 04/20/18 12:04 Morphine IVPUSH 04/20/18 11:23 2 mg ONETIME ONE Administration Nitroglycerin 0.4 mg 04/20/18 09:55 04/20/18 10:10 Nitrostat SL 04/20/18 09:56 Not Given ONETIME ONE Departure - Departure Time of Disposition: 13:13 Disposition: DC/Tfer to Other 70 Condition: Good Clinical Impression: Hypoxemia, Pleural effusion, left, Atypical chest pain, Mass of left lung - Discharge Information Referrals: PCP,None [Primary Care Provider] - Forms: ED Department Discharge - My Orders Last 24 Hours: My Active Orders 04/20/18 09:55 Cardiac Monitoring [RC] . DIRECTED EKG Documentation Completion [RC] STAT Oxygen Therapy [RC] ASDIRECTED Pulse Oximetry [RC] ASDIRECTED Sodium Chloride 0.9% [Saline Flush] 10 ml FLUSH ASDIRECTED PRN Sodium Chloride 0.9% [Saline Flush] 2.5 ml FLUSH ASDIRECTED PRN Sodium Chloride 0.9% [Saline Flush] 2.5 ml FLUSH ASDIRECTED PRN Saline Lock Insert [OM.PC] Stat 04/20/18 10:32 UA W/MICROSCOPIC [URIN] Stat 04/20/18 12:01 Sodium Chloride 0.9% [Normal Saline] 1,000 ml IV ONETIME - Assessment/Plan Last 24 Hours: My Active Orders 04/20/18 09:55 Cardiac Monitoring [RC] . DIRECTED EKG Documentation Completion [RC] STAT Oxygen Therapy [RC] ASDIRECTED Pulse Oximetry [RC] ASDIRECTED Sodium Chloride 0.9% [Saline Flush] 10 ml FLUSH ASDIRECTED PRN Sodium Chloride 0.9% [Saline Flush] 2.5 ml FLUSH ASDIRECTED PRN Sodium Chloride 0.9% [Saline Flush] 2.5 ml FLUSH ASDIRECTED PRN Saline Lock Insert [OM.PC] Stat 04/20/18 10:32 UA W/MICROSCOPIC [URIN] Stat 04/20/18 12:01 Sodium Chloride 0.9% [Normal Saline] 1,000 ml IV ONETIME
[2018-04-20 10:46] LABS: CHLORIDE,CL 100 mmol/L (98-107); SODIUM,NA 136 mmol/L (136-148)
[2018-04-20] MEDS ORDERED: Iopamidol 755 MG/ML 500 ML Multipack Bottle IVPUSH STA (11:18)
[2018-04-20] MEDS ORDERED: Morphine 2 MG/ML Syringe IVPUSH ONE ×2 (11:22→13:55)
--- NOTE | 2018-04-20 11:45 | CT ---
EXAMINATION: CTA chest HISTORY: Shortness of breath COMPARISON: CT dated 03/10/2018 TECHNIQUE: Axial CT images obtained through the chest following the administration of 50 mL of Isovue 370 in the left antecubital fossa. Coronal and sagittal reconstructions obtained. FINDINGS: There is a moderate left loculated pleural effusion. There is a spiculated 5.2 x 5.2 cm lef t perihilar consolidation, increased in size, previously measuring roughly 4.2 x 3.4 cm. Given the in crease in size and appearance this is unlikely a pulmonary embolus from the previous PEs. Enhancement pattern on today's examination is more consistent with a neoplastic process. Mild mediastinal and hi lar lymphadenopathy also noted. Small 6 mm left basilar nodules again noted. Atelectasis noted within the right lung base. No pneumothorax. Heart is normal in size without a pericardial effusion. A few filling defects are noted within the right upper lobe pulmonary arteries however contrast is noted di stally, likely suggesting a mild chronic component. However there is no evidence of an acute pulmonar y embolism. Thoracic aorta is normal in caliber. The central airways are clear. Visualized images of the upper abdomen are grossly unremarkable. No suspicious osseous abnormalities. Median sternotomy wires. IMPRESSION: 1. Increasing left perihilar masslike area of consolidation measuring 5.2 cm, likely a neoplastic pro cess. 2. Loculated moderate left pleural effusion. 3. Mild mediastinal and hilar lymphadenopathy. 4. Minimal residual pulmonary embolic process without evidence of an acute pulmonary embolism.
[2018-04-20] MEDS ORDERED: Morphine 4 MG/ML Syringe IVPUSH ONE (13:47)
[2018-04-20] MEDS ORDERED: Morphine 2 MG/ML Syringe ONE (13:53)
== END 2018-04-20 14:10 | disposition other institution (70) ==
LOC: MW.ED 09:37
DX: R09.02 Hypoxemia (principal); J90 Pleural effusion, not elsewhere classified; R07.89 Other chest pain; J44.9 Chronic obstructive pulmonary disease, unspecified; R91.8 Other nonspecific abnormal finding of lung field; Z86.73 Personal history of transient ischemic attack (TIA), and cerebral infarction without residual deficits; Z79.899 Other long term (current) drug therapy; Z79.82 Long term (current) use of aspirin; Z79.01 Long term (current) use of anticoagulants
CPT/HCPCS: 36415; 71275; 80053; 81001; 84484; 85025; 85610; 93005; 96361; 96374; 96376; 99285; A9270; J2270; J7040; Q9967; 99283